=== PATIENT | female | born 1935 | race Caucasian/White ===

== ENCOUNTER 2021-10-19 16:09 | Observation (INO) | payer MEDICARE, SELFPAY ==
[2021-10-19] VITALS (19 sets, daily range): BP systolic 117–148; BP diastolic 48–78; PULSE 63–90; RESP 11–24; TEMP 36.3–37; O2SAT 97–100; BMI 17.8
--- NOTE | 2021-10-19 16:14 | ECG_ITS ---
Measurements Intervals [place] Rate: 69 P: 64 ID: [id number] QRS: 61 QRSD: 70 T: 93 QT: 387 QTc: 417 Interpretive Statements SINUS RHYTHM LOW QRS VOLTAGE- DIFFUSE LEADS ANTEROSEPTAL INFARCT, AGE INDETERMINATE BORDERLINE ST-T WAVE ABNORMALITY- INF/LAT LEADS ABNORMAL ECG Electronically Signed On 10-19-2021 19:36:04 CDT by Alvin Holbrook D.O.
[2021-10-19 16:45] LABS: Basophils Absolute Auto 0.1 K/mm3 (0.0-0.1); Basophils Percent Auto 0.6 % (0.2-1.2); Eosinophils Absolute Auto 0.1 K/mm3 (0-0.3); Eosinophils Percent Auto 0.5 % (0-4.4); Hematocrit 29.9 % (37.0-47.0); Immature Granulocyte Absolute 0.04 K/mm3 (0.00-0.031); Immature Granulocyte Percent A 0.4 % (0-0.5); Lymphocytes Absolute Auto 0.92 K/mm3 (0.9-3.2); Mean Corpuscular HGB Conc 30.1 g/dl (32-36); Mean Corpuscular Hemoglobin 24.7 pg (26-34); Mean Corpuscular Volume 82.1 fl (80-100); Mean Platelet Volume 9.5 fl (7.4-10.4); Monocytes Absolute Auto 0.4 K/mm3 (0.1-0.6); Monocytes Percent Auto 4.2 % (2.6-8.5); Neutrophils Absolute Auto 8.7 K/mm3 (1.3-6.7); Neutrophils Percent Auto 85.3 % (45.5-73.1); Platelet Count Result 267 k/mm3 (150-375); Red Blood Count 3.64 M/mm3 (4.2-5.4); White Blood Count 10.2 K/mm3 (4.5-10.0)
--- NOTE | 2021-10-19 16:51 | ED.SYNCOPE ---
HPI - Syncope General Chief Complaint: Syncope Stated Complaint: syncopal Time Seen by Provider: 10/19/21 16:40 Source: patient Mode of arrival: EMS Limitations: no limitations History of Present Illness HPI narrative: Pt was waking in house from outside and developed CP and SOB and nearly passed out. Pt called for son to help and he got her inside and sat her down and her SOB/CP resolved. Pt has been feeling weak and tired today. Prodromal symptoms: lightheaded, chest pain and shortness of breath Context: during exertion Current symptoms: back to baseline Related Data Allergies Allergy/AdvReac Type Severity Reaction Status Date / Time No Known Allergies Allergy Verified 10/19/21 16:30 Review of Systems Review of Systems: All systems reviewed & are unremarkable except as noted in HPI and below PMFSH Family History Family History Sibling Hypertension Family history of throat cancer Father Family history of diabetes mellitus in first degree relative Patient's father is Family history of heart disease in male family member before age 55 Family history of cardiovascular disease Mother Family history of pancreatic cancer Social History Social History (Updated 08/16/21 @ 12:18 by Maryam Whitfield MA) Years smoked: 40 Smoking status: Former smoker Second hand tobacco smoke exposure: No Alcohol intake: never Exam Const: General: no acute distress Orientation/consciousness: patient oriented x3 Neck: Neck: normal visual inspection Chest: Chest palpation & inspection: normal inspection of the chest Resp: Effort & Inspection: normal respiratory effort Auscultation: clear to auscultation bilaterally Cardio: Rate: regular rate Rhythm: regular rhythm GI: Auscultation: normal bowel sounds Skin: General skin exam: normal color Rashes: no rashes Neuro: General: patient oriented x3, moves all extremities, no meningeal signs and no focal motor deficits Cranial nerves: Yes Nystagmus not present Speech: normal speech Extrem: General: normal to inspection and no clubbing, cyanosis or edema Psych: Appearance: grossly normal Mental Status: mental status grossly normal Thought content: Yes Normal thought content present Course Vital Signs Vital signs: Vital Signs Pulse Rate 75 10/19/21 16:19 Respiratory Rate 14 10/19/21 16:19 Pulse Oximetry 97 10/19/21 16:19 Pulse Rate 67 05/11/22 17:52 Respiratory Rate 20 10/19/21 17:52 Blood Pressure 123/59 L 10/19/21 17:16 Pulse Oximetry 97 10/19/21 17:52 MDM - Syncope Lab Data Result diagrams: 10/19/21 16:37 10/19/21 16:37 Labs: Lab Results 10/19/21 10/19/21 10/19/21 Range/Units 16:37 16:37 16:37 WBC 10.2 H (4.5-10.0) K/mm3 RBC 3.64 L (4.2-5.4) M/mm3 Hgb 9.0 L (12.0-15.0) g/dL Hct 29.9 L (37.0-47.0) % MCV 82.1 (80-100) fl MCH 24.7 L (26-34) pg MCHC 30.1 L (32-36) g/dl RDW 15.0 H (11.5-14.5) % Plt Count 267 (150-375) k/mm3 MPV 9.5 (7.4-10.4) fl Immature Gran % (Auto) 0.4 (0-0.5) % Neut % (Auto) 85.3 H (45.5-73.1) % Lymph % (Auto) 9.0 L (18.3-44.2) % [place] % (Auto) 4.2 (2.6-8.5) % Eos % (Auto) 0.5 (0-4.4) % Baso % (Auto) 0.6 (0.2-1.2) % Lymph # (Auto) 0.92 (0.9-3.2) K/mm3 [place] # (Auto) 0.4 (0.1-0.6) K/mm3 Eos # (Auto) 0.1 (0-0.3) K/mm3 Baso # (Auto) 0.1 (0.0-0.1) K/mm3 Abs Immat Gran (auto) 0.04 H (0.00-0.031) K/mm3 Absolute Neuts (auto) 8.7 H (1.3-6.7) K/mm3 Absolute Nucleated RBC 0.0 (0.0-0.012) K/mm3 Nucleated RBC % 0.0 (0.0-0.2) % Sodium 134 L (137-145) mmol/L Potassium 4.2 (3.4-5.0) mmol/L Chloride 106 (98-107) mmol/L Carbon Dioxide 24 (22-30) mmol/L Anion Gap 4 L (8-16) mmol/L BUN 20 H (7-17) mg/dL Creatinine 0.90 (0.7-1.0) mg/dL Estim Creat Clear [place]
[2021-10-19 16:56] LABS: Alanine Aminotransferase 12 U/L (6-35); Albumin Level 3.9 g/dL (3.5-5.1); Alkaline Phosphatase 61 U/L (38-126); Anion Gap 4 mmol/L (8-16); Aspartate Amino Transferase 25 U/L (14-36); Bilirubin,Total 0.6 mg/dL (0.2-1.3); Blood Urea Nitrogen 20 mg/dL (7-17); Calcium 9.1 mg/dL (8.4-10.2); Carbon Dioxide 24 mmol/L (22-30); Chloride 106 mmol/L (98-107); Estimated CRCL calculation 37 ml/min; Estimated Glomerular Filt Rate 59; Glucose 105 mg/dL (65-110); Potassium 4.2 mmol/L (3.4-5.0); Sodium 134 mmol/L (137-145)
[2021-10-19 17:20] LABS: NT Pro B Type Natriuretic Pept 181 pg/mL (5-100); Troponin I < 0.012 ng/mL (0.000-0.034)
[2021-10-19 17:42] LABS: Troponin I < 0.012 ng/mL (0.000-0.034)
[2021-10-19] MEDS: ASPIRIN 81 MG CHEWABLE TABLET 324 MG PO (18:36)
[2021-10-19 19:29] LABS: SARS-CoV-2 RNA PCR Negative
--- NOTE | 2021-10-19 20:26 | PC.NURSE ---
Patient report tried to call. nurse unable to take report at this time.
[2021-10-19 22:10] LABS: Troponin I < 0.012 ng/mL (0.000-0.034)
--- NOTE | 2021-10-19 22:27 | PM.IMHP ---
H&P: HPI History of Present Illness Date/Time: Patient was placed observation status for expected length of stay less than 23 hours for management, will plan to re-evaluate tomorrow for improvement. 10/19/21 22:27 Chief Complaint: Chest pain Narrative: Ms. Buenrostro is an 86-year-old female who presented to emergency room with complaints of chest discomfort and weakness. Patient states she was walking out to her porch to talk to her son and after speaking with him she was going back in the house and began having midsternal chest discomfort without any radiation. Patient states she did have associated shortness of breath and diaphoresis. Patient states she felt extremely weak in the knees and felt like she could not walk and called for her son to help her. Patient denies any associated nausea or vomiting. Patient stated that she felt like she may ?pass out?, but she never lost consciousness. Patient states that she know she has stents summer in her body, but she is unsure if it is her heart or her legs. 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 After looking through previous medical records it does appear that patient has seen Cardiology in the past, with the last note being 12/21/2015. At that time it was noted the patient does have a history of coronary artery disease status post mid LAD drug-eluting stent that was performed in 2012. Patient also has peripheral arterial disease status post stent placement to her left external iliac artery. Patient states she has been taking all medications at home without any difficulty. Review of Systems Review of Systems: A 12 point review of systems was completed patient all pertinent positive and negative per HPI the remainder are unremarkable. [facility] Past Medical History Medical History (Updated 10/19/21 @ 22:53 by Alysia Perdomo APRN) Coronary artery disease involving habematolel coronary artery of habematolel heart History of PTCA 2 PAD (peripheral artery disease) Surgical History Surgical History (Updated 10/19/21 @ 22:53 by Alysia Perdomo APRN) History of cataract removal with insertion of prosthetic lens History of coronary artery stent placement Family History Family History Sibling Hypertension Family history of throat cancer Father Family history of diabetes mellitus in first degree relative Patient's father is Family history of heart disease in male family member before age 55 Family history of cardiovascular disease Mother Family history of pancreatic cancer Social History Social History (Updated 08/16/21 @ 12:18 by Maryam Whitfield MA) Years smoked: 40 Smoking status: Former smoker Second hand tobacco smoke exposure: No Alcohol intake: never Meds Home Medications and Allergies Home Medications Medication Instructions Recorded Confirmed Type famotidine 20 mg tablet 20 mg PO BID #180 tablet 08/16/21 10/19/21 Rx atorvastatin 40 mg PO HS 10/19/21 10/19/21 History carvedilol 3.125 mg PO Q12H 10/19/21 10/19/21 History clopidogrel 75 mg PO DAILY 10/19/21 10/19/21 History ferrous sulfate 324 mg PO DAILY 10/19/21 10/19/21 History Allergies Allergy/AdvReac Type Severity Reaction Status Date / Time No Known Allergies Allergy Verified 10/19/21 16:30 Vital Signs Vital Signs - 24 hr 10/19/21 16:10 10/19/21 16:19 10/19/21 16:20 Temperature 36.3 C L Pulse Rate 72 75 73 Respiratory Rate 16 14 11 L Blood Pressure 124/78 127/66 Pulse Oximetry 98 97 98 10/19/21 16:29 10/19/21 16:33 10/19/21 16:45 Temperature Pulse Rate 90 68 71 Respiratory Rate 20 17 Blood Pressure Pulse Oximetry 98 98 10/19/21 17:12 10/19/21 17:15 10/19/21 17:16 Temperature Pulse Rate 66 65 64 Respiratory Rate 18 23 H 23 H Blood Pressure 123/59 L Pulse Oximetry 97 98 98 10/19/21 17:52 10/19/21 18:12 10/19/21 18:15 Temperature Pul
[2021-10-19] MEDS: carvediloL 3.125 MG TABLET PO (23:23)
[2021-10-19] MEDS: ATORVASTATIN 40 MG TABLET PO (23:23)
[2021-10-20] VITALS (12 sets, daily range): BP systolic 109–138; BP diastolic 45–54; PULSE 60–75; RESP 16–18; TEMP 36.6–37.2; O2SAT 98–100; BMI 17.8
--- NOTE | 2021-10-20 | ECHO_ITS ---
Patient Info Name: Milly Buenrostro Age: 86 years : 1935 Gender: Female Ht: 64 in Wt: 103 lbs BSA: 1.44 m2 HR: 72 bpm BP: 138 / 54 mmHg Technical Quality: Fair Exam Date: 10/20/2021 9:37 AM Exam Location: [facility] Pul[facility] Patient Status: Outpatient Admit Date: 10/19/2021 Staff Ordering Physician: Alysia Perdomo APRN Transaction Manager: Yanna Mejia RDCS Attending Provider: Dorothy Downing DO Referring Physician: Magi MUELLER Exam Type: CA echo doppler color flow Study Info Indications R07.9 - Chest pain, unspecified Complete two-dimensional, color flow and Doppler transthoracic echocardiogram is performed. Summary 1. Complete two-dimensional, color flow and Doppler transthoracic echocardiogram is performed. 2. Left ventricular chamber dimension is normal. 3. Left ventricular systolic function is normal, estimated at 60-65%. 4. There is mildly increased left ventricular wall thickness. 5. The left ventricular diastolic function is grade I diastolic dysfunction. 6. E/e' 10 is mildly elevated. 7. There is moderate aortic valve sclerosis. 8. No pulmonary hypertension, estimated pulmonary arterial systolic pressure is 30 mmHg. Left Ventricle E/e' 10 is mildly elevated. Left ventricular chamber dimension is normal. Left ventricular systolic function is normal, estimated at 60-65%. There is mildly increased left ventricular wall thickness. The left ventricular diastolic function is grade I diastolic dysfunction. Right Ventricle Right ventricular chamber dimension is normal. Right ventricular systolic function is normal. Left Atria Left atrial chamber dimension is normal. Right Atria Right atrial chamber dimension is normal. Aortic Valve The aortic valve is trileaflet. There is moderate aortic valve sclerosis. There is no aortic valve stenosis. There is no aortic valve regurgitation. Pulmonic Valve There is no pulmonic regurgitation. Mitral Valve There is no mitral valve stenosis. There is no mitral valve regurgitation. Tricuspid Valve There is no tricuspid valve regurgitation. No pulmonary hypertension, estimated pulmonary arterial systolic pressure is 30 mmHg. Pericardium/Pleural There is no pericardial effusion. Inferior Vena Cava Normal inferior vena cava with >50% collapse upon inspiration consistent with normal right atrial pressure, 5 mmHg. Aorta The aortic root size at the sinus of Valsalva is normal. Left Ventricular Outflow Tract Name Value Normal LVOT 2D LVOT Diameter 1.9 cm LVOT Doppler LVOT Peak Gradient 2 mmHg LVOT Mean Gradient 1 mmHg LVOT VTI 23 cm LVOT VTI/AV VTI Ratio 0.9 LVOT Stroke Volume 67 ml LVOT CO 2.5 l/min LVOT CI 1.7 l/min/m2 Pulmonic Valve Name Value Normal
--- NOTE | 2021-10-20 01:38 | ADMGEN ---
This patient, Milly Buenrostro, was admitted to IMU Room 206-02 at 2050 on 10/19/2021. Patient/family oriented to hospital policies and general routines including ID bracelet, bed and alarms, visiting hours, pain management, procedures, bathroom and other care routines, personal items, smoking policy, room service/diet, and visiting hours. Information on how to activate the Rapid Response Team has been discussed. Patient/Family are encouraged to report perceived risks to care and to ask questions if they do not understand what they are told or what they should do.
[2021-10-20 04:44] LABS: Basophils Absolute Auto 0.1 K/mm3 (0.0-0.1); Basophils Percent Auto 0.7 % (0.2-1.2); Eosinophils Absolute Auto 0.1 K/mm3 (0-0.3); Eosinophils Percent Auto 1.3 % (0-4.4); Hemoglobin 8.1 g/dL (12.0-15.0); Immature Granulocyte Absolute 0.03 K/mm3 (0.00-0.031); Immature Granulocyte Percent A 0.4 % (0-0.5); Lymphocytes Absolute Auto 1.48 K/mm3 (0.9-3.2); Lymphocytes Percent Auto 21.4 % (18.3-44.2); Mean Corpuscular HGB Conc 31.2 g/dl (32-36); Mean Corpuscular Hemoglobin 24.6 pg (26-34); Mean Platelet Volume 9.6 fl (7.4-10.4); Monocytes Absolute Auto 0.5 K/mm3 (0.1-0.6); Monocytes Percent Auto 6.7 % (2.6-8.5); Neutrophils Absolute Auto 4.8 K/mm3 (1.3-6.7); Neutrophils Percent Auto 69.5 % (45.5-73.1); Platelet Count Result 250 k/mm3 (150-375); Red Blood Count 3.29 M/mm3 (4.2-5.4); Red Cell Distribution Width 15.1 % (11.5-14.5); White Blood Count 6.9 K/mm3 (4.5-10.0)
[2021-10-20 04:53] LABS: Anion Gap 5 mmol/L (8-16); Blood Urea Nitrogen 18 mg/dL (7-17); Calcium 8.6 mg/dL (8.4-10.2); Carbon Dioxide 22 mmol/L (22-30); Chloride 106 mmol/L (98-107); Estimated CRCL calculation 36 ml/min; Estimated Glomerular Filt Rate > 60; Glucose 84 mg/dL (65-110); Magnesium 2.1 mg/dL (1.6-2.3); Potassium 3.7 mmol/L (3.4-5.0); Sodium 133 mmol/L (137-145)
[2021-10-20] MEDS: FAMOTIDINE 20 MG TABLET PO (08:34)
[2021-10-20] MEDS: carvediloL 3.125 MG TABLET PO (08:34)
[2021-10-20] MEDS: FERROUS SULFATE 324 MG TABLET PO (08:34)
[2021-10-20] MEDS: ENOXAPARIN 40 MG/0.4 ML SYRINGE SUB-Q (08:35)
[2021-10-20] MEDS: CLOPIDOGREL BISULFATE 75 MG TABLET PO (08:35)
[2021-10-20] MEDS: SODIUM CHLORIDE 0.9% IV 500 ML IV CONT (11:52)
[2021-10-20 15:22] LABS: Anion Gap 5 mmol/L (8-16); Blood Urea Nitrogen 18 mg/dL (7-17); Calcium 8.5 mg/dL (8.4-10.2); Carbon Dioxide 23 mmol/L (22-30); Chloride 110 mmol/L (98-107); Estimated CRCL calculation 29 ml/min; Estimated Glomerular Filt Rate 59; Glucose 109 mg/dL (65-110); Sodium 138 mmol/L (137-145)
--- NOTE | 2021-10-20 18:54 | PM.DS ---
DS: Admitting Diagnosis Discharge Date 10/20/21 Admitting Diagnosis Chest pain and generalized weakness DS: Discharge Diagnosis Discharge Diagnosis (1) Chest pain: Qualifiers: Chest pain type: chest pain due to myocardial ischemia Ischemic chest pain type: unspecified angina pectoris type Qualified Code(s): I25.9 - Chronic ischemic heart disease, unspecified Code(s): R07.9 - Chest pain, unspecified Status: Acute Assessment and Plan: Telemetry and troponins all within normal limits, follow-up outpatient with Cardiology for stress test. Echo did show grade 1 diastolic dysfunction, no systolic dysfunction. (2) Benign essential hypertension: Code(s): I10 - Essential (primary) hypertension Status: Acute Assessment and Plan: Will resume patient's home medications once verified home medication list and adjust medications accordingly for optimal blood pressure control. (3) Mixed hyperlipidemia: Code(s): E78.2 - Mixed hyperlipidemia Status: Acute Assessment and Plan: Will resume patient's home atorvastatin. Patient's most recent lipid panel was performed in July of this year and Lipitor very well controlled at that time. (4) Hyponatremia: Code(s): E87.1 - Hypo-osmolality and hyponatremia Status: Acute Assessment and Plan: Likely secondary to dehydration, resolved with simple bolus DS: Summary Hospital Course Reason for hospitalization: Chest pain Hospital Course: 86-year-old female with past medical history significant for coronary artery disease is presenting with chest discomfort and weakness. She did have some associated shortness of breath and diaphoresis and felt weak. She felt like she might pass out, but never lost consciousness. She is admitted for observation, troponins were negative x3 and telemetry was benign. ECG showed no acute changes. Echo was also ordered and showed grade 1 diastolic dysfunction with an EF of 60-65%. She was discharged in good condition with outpatient follow-up to Cardiology to arrange a stress test. Status at Discharge Functional status at discharge: independent ambulation Overall status at discharge: patient is back to baseline Time Spent with Patient Time attestation: Total time spent providing and/or coordinating discharge services: Greater than 30 minutes Time spent: Greater than 30 minutes Exam Const: General: no acute distress HENMT: Mouth: Yes moist mucous membranes Eyes: General: appearance normal, both eyes and all related structures Neck: Neck: no JVD Resp: Auscultation: clear to auscultation bilaterally Cardio: Rate: regular rate Rhythm: regular rhythm GI: Inspection: non-distended GI Palp: Yes Soft to palpation and No Tenderness to palpation present (GI) Skin: General skin exam: no rashes or lesions noted DS: Data Data Completed and Pending Labs on day of discharge: Labs from last 24 hours 10/20/21 10/20/21 10/20/21 15:05 04:26 04:26 WBC 6.9 RBC 3.29 L Hgb 8.1 L Hct 26.0 L MCV 79.0 L MCH 24.6 L MCHC 31.2 L RDW 15.1 H Plt Count 250 MPV 9.6 Immature Gran % (Auto) 0.4 Neut % (Auto) 69.5 Lymph % (Auto) 21.4 [place] % (Auto) 6.7 Eos % (Auto) 1.3 Baso % (Auto) 0.7 Lymph # (Auto) 1.48 [place] # (Auto) 0.5 Eos # (Auto) 0.1 Baso # (Auto) 0.1 Abs Immat Gran (auto) 0.03 Absolute Neuts (auto) 4.8 Absolute Nucleated RBC 0.0 Nucleated RBC % 0.0 Sodium 138 133 L Potassium 4.0 3.7 Chloride 110 H 106 Carbon Dioxide 23 22 Anion Gap 5 L 5 L BUN 18 H 18 H Creatinine 0.90 0.70 Estim Creat Clear Calc 29 36 Estimated GFR 59 > 60 Glucose 109 84 Calcium 8.5 8.6 Magnesium 2.1 Troponin I SARS-CoV-2 RNA (RT-PCR) 10/19/21 10/19/21 21:43 18:39 WBC RBC Hgb Hct MCV MCH MCHC RDW Plt Count MPV Immature Gran % (Auto) Neut % (Auto) L
== END 2021-10-20 17:30 | disposition home or self-care (01) ==
LOC: ANHED 18:07 → ANHIMU 19:57
PROVIDERS: Emergency Medicine; Nurse Practitioner Adult Health; Admitting Provider Family Medicine; Emergency Provider Emergency Medicine; PCP Internal Medicine; Visit Provider Student in an Organized Health Care Education/Training Program
DX: R07.9 Chest pain, unspecified (principal); I25.10 Atherosclerotic heart disease of native coronary artery without angina pectoris; I10 Essential (primary) hypertension; I73.9 Peripheral vascular disease, unspecified; E78.2 Mixed hyperlipidemia; E87.1 Hypo-osmolality and hyponatremia; Z95.820 Peripheral vascular angioplasty status with implants and grafts; Z95.5 Presence of coronary angioplasty implant and graft; Z20.822 Contact with and (suspected) exposure to COVID-19
CPT/HCPCS: 36415; 80048; 80053; 83735; 83880; 84484; 85025; 93005; 93306; 96372; 97161; 99285; A9270; C9803; G0378; J1650; J7040; U0003; U0005

== ENCOUNTER 2022-05-17 11:00 | Outpatient (RCR) | payer MEDICARE, SELFPAY ==
--- NOTE | 2022-05-17 13:18 | PCPTNOTE ---
Patient did not show up for scheduled appointment this date.
== END 2022-07-31 08:33 | disposition home or self-care (01) ==
LOC: ANHPT 11:00
PROVIDERS: PCP Internal Medicine; Visit Provider Internal Medicine
DX: R26.9 Unspecified abnormalities of gait and mobility (principal)
CPT/HCPCS: 99199

== ENCOUNTER 2022-06-28 11:50 | Outpatient (CLI) | payer MEDICARE, SELFPAY ==
--- NOTE | ~2022-06-28 | XR_ITS ---
XR chest 2V DATE: 06/28/2022 12:14 INDICATION: Abnormal weight loss over the past 6 months TECHNIQUE: PA and lateral views COMPARISON: 12/09/2012 PA and lateral chest FINDINGS: There is minimal focal infiltrate or atelectasis in the anterior segment of the right upper lobe laterally abutting the minor fissure. Minimal bilateral lower lung infiltrate or atelectasis is suggested. The lungs appear moderately hyperinflated. Normal heart size. Aortic and great vessel calcification. Coronary artery stent. No hilar or mediasti nal enlargement. No pleural effusion or pulmonary vascular congestion or pneumothorax. Osteopenia. Degenerative spurring of the thoracic and lumbar spine. IMPRESSION: Minimal focal infiltrate in the lateral anterior segment of the right upper lobe abutting the minor fissure Suggestion of minimal infiltrate or atelectasis in the lower lung zones Moderate hyperinflation Coronary artery stent Aortic and great vessel calcification Osteopenia Degenerative spurring of the thoracic and lumbar spine. Reviewed, dictated and finalized at location B. [facility] [employer] IMPRESSION: Minimal focal infiltrate in the lateral anterior segment of the rig ht upper lobe abutting the minor fissure Suggestion of minimal infiltrate or atelectasis in the lower lung zones Moderate hyperinflation Coronary artery stent Aortic and great vessel calcification Osteopenia Degenerative spurring of the thoracic and lumbar spine.
== END 2022-06-28 11:51 | disposition home or self-care (01) ==
PROVIDERS: PCP Internal Medicine; Visit Provider Nurse Practitioner
DX: R63.4 Abnormal weight loss (principal); M85.88 Other specified disorders of bone density and structure, other site; R91.8 Other nonspecific abnormal finding of lung field; I70.0 Atherosclerosis of aorta
CPT/HCPCS: 71046

== ENCOUNTER 2023-03-16 10:26 | Outpatient (CLI) | payer MEDICARE, SELFPAY ==
--- NOTE | ~2023-03-16 | US_ITS ---
EXAMINATION: US soft tissue head and neck DATE: 03/16/2023 11:31 INDICATION: Localized swelling, mass and lump at the left neck. TECHNIQUE: Multiple grayscale and Doppler ultrasound images of the region of concern on the left jaw near the ear were obtained. COMPARISON: None FINDINGS: At the region of concern is a 3.7 x 2.8 x 2.3 cm heterogeneously hypoechoic mass with lobular margins and some internal vascular flow on color Doppler. There is situated along the caudal margin of what appears to be the echogenic parotid gland. There are multiple enlarged and similarly heterogeneous an d hypoechoic left jugular chain lymph nodes. For reference 3 of the largest measure 2.2 x 1.5 x 1.0 c m, 2.0 x 1.0 x 0.8 cm and 2.4 x 1.1 x 1.8 cm. No evident pathologically enlarged lymphadenopathy in t he contralateral right jugular chain. Incidentally noted are multiple bilateral thyroid nodules, the largest a 1.6 cm taller than wide solid hypoechoic nodule (TI-RADS 5, highly suspicious , FNA if >=1. 0 cm, annual followup is >0.5 cm). IMPRESSION: 1. 3.7 x 2.8 x 2.3 cm heterogeneous mass at the region of concern located along the caudal margin of the parotid. Unclear whether this represents flow within or outside of the parotid but which is along with multiple enlarged left jugular chain lymph nodes are concerning for malignancy and/or metastati c disease. Recommend ultrasound-guided biopsy. 2. Incompletely visualized multinodular goiter with at least one nodule meeting criteria for ultrasou nd-guided biopsy. Recommend thyroid ultrasound for more comprehensive evaluation and to determine if there are any additional more concerning nodules for which biopsy would be recommended. Reviewed, dictated and finalized at location A. IMPRESSION: 1. 3.7 x 2.8 x 2.3 cm heterogeneous mass at the region of concern located along the caudal margin of the parotid. Unclear whether this represents flow within or outside of the parotid but which is along with multiple enlarged left jugula r chain lymph nodes are concerning for malignancy and/or metastatic disease. Re commend ultrasound-guided biopsy. 2. Incompletely visualized multinodular goiter with at least one nodule meeting criteria for ultrasound-guided biopsy. Recommend thyroid ultrasound for more c omprehensive evaluation and to determine if there are any additional more uday rning nodules for which biopsy would be recommended.
== END 2023-03-16 10:27 | disposition home or self-care (01) ==
PROVIDERS: PCP Family Medicine; Visit Provider Family Medicine
DX: R22.1 Localized swelling, mass and lump, neck (principal); E04.2 Nontoxic multinodular goiter
CPT/HCPCS: 76536

== ENCOUNTER → 2023-03-23 10:43 | Outpatient (CLI) | payer MEDICARE, SELFPAY ==
--- NOTE | ~2023-03-23 | US_ITS ---
EXAMINATION: US thyroid DATE: 03/23/2023 11:08 INDICATION: Nontoxic single thyroid nodule. TECHNIQUE: Multiple ultrasound images of the thyroid were obtained. COMPARISON: Ultrasound 03/16/2023 FINDINGS: The right thyroid lobe measures 5.6 x 1.8 x 1.5 cm. The left thyroid lobe measures 4.4 x 2.0 x 2.1 c m. There are least 10 nodules in the thyroid. In the left thyroid lobe, there is a 1.8 cm solid, hyp oechoic, wider than tall nodule with ill-defined margin without echogenic foci (TI-RADS TR4). In the left thyroid lobe, there is a 1.3 cm solid, hypoechoic, wider than tall nodule with ill-defined leroy n without echogenic foci (TR4). In the left thyroid lobe, there is a 1.6 cm solid, hypoechoic, wider than tall nodule with smooth margin without echogenic foci (TR4). IMPRESSION: 1. Multinodular goiter. The patient is scheduled for a cervical lymph node biopsy next week. If that biopsy is negative or positive for cancer other than thyroid cancer, consider ultrasound-guided fine- needle aspiration of 2 thyroid nodules if clinically indicated given the patient's age and comorbidit ies. Reviewed, dictated and finalized at location A. IMPRESSION: 1. Multinodular goiter. The patient is scheduled for a cervical lymph node biop sy next week. If that biopsy is negative or positive for cancer other than thyr oid cancer, consider ultrasound-guided fine-needle aspiration of 2 thyroid nodu les if clinically indicated given the patient's age and comorbidities.
== END ==
PROVIDERS: PCP Family Medicine; Visit Provider Family Medicine
DX: E04.2 Nontoxic multinodular goiter (principal)
CPT/HCPCS: 76536

== ENCOUNTER 2023-03-26 09:06 | Outpatient (CLI) | payer MEDICARE, SELFPAY ==
--- NOTE | ~2023-03-26 | US_ITS ---
EXAMINATION: US biopsy lymph node DATE: 03/26/2023 10:34 INDICATION: Left neck mass and cervical lymphadenopathy TECHNIQUE: The procedure including the risks and benefits was discussed with the patient. Risks discu ssed included bleeding and infection. The patient understood the risks and agreed to proceed. The sk in overlying the left neck was prepped and draped in usual sterile fashion. Anesthetic was administe red with 1% lidocaine subcutaneously. An 18 gauge core biopsy needle was advanced under continuous u ltrasound observation to the enlarged and heterogeneous appearing left jugular chain lymph nodes. 8 core biopsy specimens were obtained, 3 placed in formalin and 5 in RPMI media. The needle was remove d and the entry site was cleaned and dressed. Post procedure ultrasound demonstrated no hemorrhage. FINDINGS: Ultrasound images demonstrate biopsy needle advanced into a 1.9 x 1.2 cm left jugular chain lymph node. IMPRESSION: 1. Successful Ultrasound-guided biopsy of an enlarged 1.9 x 1.2 similar left jugular chain lymph node . Reviewed, dictated and finalized at location A. IMPRESSION: 1. Successful Ultrasound-guided biopsy of an enlarged 1.9 x 1.2 similar left ju gular chain lymph node.
== END 2023-03-26 09:07 | disposition home or self-care (01) ==
PROVIDERS: PCP Family Medicine; Visit Provider Family Medicine
DX: R22.1 Localized swelling, mass and lump, neck (principal); R68.89 Other general symptoms and signs
CPT/HCPCS: 38505; 76942; 88305; 88342

== ENCOUNTER 2023-04-12 13:09 | Outpatient (CLI) | payer MEDICARE, SELFPAY ==
--- NOTE | ~2023-04-12 | PE_ITS ---
EXAMINATION: PET skull to mid thigh DATE: 04/12/2023 15:20 INDICATION: Malignant neoplasm of head, face, neck. TECHNIQUE: Blood glucose level was 74 mg/dL. 10.1 mCi of 18-fluorodeoxyglucose (18-FDG) was administe red i.v. Low dose computed tomography (CT) images were acquired from the base of the brain to the pro ximal thighs for attenuation correction and anatomic localization. Automated exposure control was emp loyed. Dose-length product (DLP) was 509 mGy-cm. Positron emission tomography (PET) images were acqui red in the same distribution. COMPARISON: None FINDINGS: Head/neck: There is left high and middle internal jugular chain lymphadenopathy. For example, a 3.3 x 3.4 cm hector mass in left high internal jugular chain demonstrates maximum SUV of 12. There is a 12 mm nodule in left thyroid lobe, likely not clinically significant. Chest: There is mild scarring at the lung apices. No pleural effusion. There is calcified atheroscler osis of the aorta and many of the other arteries. The heart size is normal. There are coronary artery calcifications. No pericardial effusion. Abdomen/pelvis/proximal thighs: The liver, gallbladder, spleen, adrenal glands, and right kidney are normal. Calcifications in the hilum of left kidney are likely vascular. There is diverticulosis of th e colon without evidence of diverticulitis. There are changes of right hemicolectomy. There are no pa thologically enlarged lymph nodes. There is no free intraperitoneal fluid. There is no osseous malign lili. IMPRESSION: 1. Left internal jugular chain lymphadenopathy with increased activity, consistent with metastatic sq uamous cell carcinoma. Reviewed, dictated and finalized at location E. IMPRESSION: 1. Left internal jugular chain lymphadenopathy with increased activity, consist ent with metastatic squamous cell carcinoma.
[2023-04-12 13:52] LABS: Glucose Point of Care 74 mg/dl (65-105)
== END 2023-04-12 13:10 | disposition home or self-care (01) ==
PROVIDERS: PCP Family Medicine; Referring Provider Nurse Practitioner; Visit Provider Family Medicine
DX: C76.0 Malignant neoplasm of head, face and neck (principal); R59.0 Localized enlarged lymph nodes
CPT/HCPCS: 78815; A9552

== ENCOUNTER 2023-05-01 13:11 | Outpatient (CLI) | payer MEDICARE, SELFPAY ==
--- NOTE | ~2023-05-01 | US_ITS ---
EXAMINATION: US FNA additional, US FNA w image guidance DATE: 05/01/2023 14:25 INDICATION: Left sided thyroid nodules TECHNIQUE: A time-out was performed to verify the patient's name, date of , and procedure to be performed . The procedure and its benefits and risks were discussed with the patient. Risks specifically discus sed included bleeding and infection. The patient understood the risks and agreed to proceed. The left neck was prepped and draped in the usual sterile manner. 4 mL 1% lidocaine was used for local anest hesia. Attention was first turned to the larger nodules in the mid left thyroid lobe. 6 passes were m jane with a 25G needle into the lesion. Appropriate needle location was documented with continuous so nographic guidance. Attention was then turned to the smaller more inferior left thyroid nodule. An ad ditional 6 passes were made with a 20 5G needle into the lesion again with continuous sonographic roseann dance. A sterile bandage was applied. There were no immediate complications. FINDINGS: Grayscale ultrasound images demonstrate biopsy needles advanced into first a 2.4 x 1.0 x 1.4 cm TI RA DS 4 nodule in the mid left thyroid. Subsequently images demonstrate additional biopsy needles advanc ed into the more caudal 1.5 x 0.7 x 1.5 cm TI RADS 4 nodule at the inferior left thyroid. IMPRESSION: 1. Successful ultrasound-guided fine needle aspiration of a 2.4 cm TI RADS 4 nodule in the mid left thyroid. 2. Successful ultrasound-guided fine-needle aspiration of a 1.5 similar TI RADS 4 nodule in the infer ior left thyroid.. Reviewed, dictated and finalized at location A. ING HOME MANAGER IMPRESSION: 1. Successful ultrasound-guided fine needle aspiration of a 2.4 cm TI RADS 4 n odule in the mid left thyroid. 2. Successful ultrasound-guided fine-needle aspiration of a 1.5 similar TI RADS 4 nodule in the inferior left thyroid..
== END 2023-05-01 13:12 | disposition home or self-care (01) ==
PROVIDERS: PCP Family Medicine; Visit Provider Internal Medicine Hematology & Oncology
DX: E04.1 Nontoxic single thyroid nodule (principal)
CPT/HCPCS: 10005; 10006; 88173; 88305

== ENCOUNTER 2023-06-01 07:26 | Outpatient (CLI) | payer MEDICARE, SELFPAY ==
--- NOTE | ~2023-06-01 | NM_ITS ---
EXAMINATION: NM chano stress w perfusion DATE: 06/01/2023 10:44 INDICATION: Shortness of breath TECHNIQUE: Rest images were obtained following intravenous administration of 10.2 mCi Tc99m tetrofosm in (Myoview). The patient was infused intravenously with Lexiscan (Regadenoson). Then, 32.2 mCi Tc99m tetrofosmin (Myoview) was administered intravenously, and stress images were obtained. Data was flash nstructed into short axis and horizontal and vertical long axis SPECT images. Gated SPECT images were also obtained. COMPARISON: None. FINDINGS: There is no definite reversible or fixed perfusion abnormality to suggest ischemia or infar ction. There is normal left ventricular chamber size, wall motion and ejection fraction. Left ventr icular ejection fraction measures 70%. IMPRESSION: 1. Normal myocardial perfusion at rest and during stress. 2. Left ventricular ejection fraction measuring 70%. Reviewed, dictated and finalized at location A. MENT WORKER
--- NOTE | 2023-06-01 08:17 | EST_ITS ---
Patient Info Name: Milly Buenrostro Age: 88 years : 1935 Gender: Female Ht: 64 in Wt: 106 lbs BSA: 1.47 m2 HR: 82 bpm BP: 132 / 86 mmHg Heart Rhythm: Sinus Rhythm Exam Date: 06/01/2023 8:34 AM Exam Location: Echo Lab Patient Status: Outpatient Admit Date: 06/01/2023 Staff Ordering Physician: Alvin Holbrook DO Attending Provider: Alvin Holbrook DO Exercise Technologist: Donna Cao CT Exercise Physician: Alvin Holbrook DO Exam Type: CA stress chano w NM Study Info Indications Z01.810 - Encounter for preprocedural cardiovascular examination A regadenoson stress test was performed. Summary 1. 1. Abnormal lexiscan stress test for ischemic ST changes by ECG criteria. 2. 2. Stable hemodynamics throughout the test. 3. 3. Nuclear scan to follow and will be reported separately. Please correlate with it. 4. 4. Patient informed of the above results. Protocol: Lexiscan Stress ECG Details Stage: REST Duration (min): 1 min : 8 sec HR (bpm): 80 SBP (mmHg): 132 DBP (mmHg): 86 Stage: REST Duration (min): 13 min : 7 sec HR (bpm): 80 SBP (mmHg): 132 DBP (mmHg): 86 Stage: STAGE 1 Duration (min): 0 min : 59 sec HR (bpm): 91 SBP (mmHg): 132 DBP (mmHg): 86 Stage: RECOVERY Duration (min): 1 min : 0 sec HR (bpm): 97 SBP (mmHg): 163 DBP (mmHg): 74 Stage: RECOVERY Duration (min): 2 min : 0 sec HR (bpm): 96 SBP (mmHg): 163 DBP (mmHg): 74 Stage: RECOVERY Duration (min): 3 min : 0 sec HR (bpm): 95 SBP (mmHg): 179 DBP (mmHg): 82 Stage: RECOVERY Duration (min): 4 min : 0 sec HR (bpm): 97 SBP (mmHg): 179 DBP (mmHg): 82 Stage: RECOVERY Duration (min): 5 min : 0 sec HR (bpm): 96 SBP (mmHg): 189 DBP (mmHg): 83 Stage: RECOVERY Duration (min): 5 min : 24 sec HR (bpm): 94 SBP (mmHg): 189 DBP (mmHg): 83 Rest HR: 80 bpm Peak HR: 101 bpm Rest Sys BP: 132 mmHg Peak Sys BP: 189 mmHg Max Pred HR: 131 bpm % Max Pred HR: 77 % Target HR: 111 bpm Max RPP: 19,089 bpm*mmHg Termination Reason: Completed protocol Cardiac Symptoms: Shortness of breath, Nausea, Aminophylline 100 mg IV given for persistent symptoms Total Time: 1 min : 0 sec Rest Best BP: 86 mmHg Peak Best BP: 83 mmHg Total Dose: 0.4 mg Resting ECG Sinus rhythm, anteroseptal infarct, high lateral infarct, age indeterminate, borderline ST abnormality in inferior leads. Stress ECG 1-[address] depression in inferior leads. Arrhythmias None. Report Signatures
== END 2023-06-01 07:27 | disposition home or self-care (01) ==
PROVIDERS: PCP Nurse Practitioner; Visit Provider Internal Medicine Cardiovascular Disease
DX: R06.02 Shortness of breath (principal)
CPT/HCPCS: 78452; 93017; A9502; J0280; J2785

== ENCOUNTER 2023-08-14 13:47 | Emergency (ER) | payer MEDICARE, SELFPAY ==
--- NOTE | ~2023-08-14 | XR_ITS ---
EXAMINATION: XR chest 1V portable Exam Date/Time: 08/14/2023 19:21 TRANSFER TABLE OPERATOR HELPER HISTORY: Weakness Comparison: 06/28/2022. RESULT: Lines, tubes, and devices: Coronary artery stent. Lungs and pleura: Senescent changes. Granulomatous calcifications. Cardiomediastinal silhouette: Stable. Other: No acute osseous or upper abdominal finding. IMPRESSION: No acute cardiopulmonary process. Reviewed, dictated and finalized at location K. SFER TABLE OPERATOR HELPER
[2023-08-14 14:13] VITALS: BP 134/67; PULSE 114; RESP 18; TEMP 36.6; O2SAT 99
[2023-08-14] MEDS: SODIUM CHLORIDE 0.9% IV 1,000 ML 500 ML IV CONT (19:57)
[2023-08-14 20:05] VITALS: BP 125/67; PULSE 90; RESP 19; O2SAT 100
[2023-08-14 20:05] LABS: Basophils Percent Auto 0.3 % (0.2-1.2); Eosinophils Percent Auto 0.3 % (0-4.4); Immature Granulocyte Absolute 0.04 K/mm3 (0.00-0.031); Immature Granulocyte Percent A 0.5 % (0-0.5); Lymphocytes Absolute Auto 0.53 K/mm3 (0.9-3.2); Lymphocytes Percent Auto 6.6 % (18.3-44.2); Mean Corpuscular HGB Conc 31.7 g/dl (32-36); Mean Corpuscular Hemoglobin 28.4 pg (26-34); Mean Corpuscular Volume 89.7 fl (80-100); Mean Platelet Volume 9.4 fl (7.4-10.4); Monocytes Absolute Auto 0.6 K/mm3 (0.1-0.6); Neutrophils Absolute Auto 6.7 K/mm3 (1.3-6.7); Neutrophils Percent Auto 84.3 % (45.5-73.1); Platelet Count Result 298 k/mm3 (150-375); Red Blood Count 4.57 M/mm3 (4.2-5.4); Red Cell Distribution Width 11.9 % (11.5-14.5)
[2023-08-14 20:14] LABS: Alanine Aminotransferase 15 U/L (6-35); Albumin Level 3.5 g/dL (3.5-5.1); Alkaline Phosphatase 70 U/L (38-126); Anion Gap 7 mmol/L (8-16); Aspartate Amino Transferase 28 U/L (14-36); Bilirubin,Total 0.8 mg/dL (0.2-1.3); Blood Urea Nitrogen 22 mg/dL (7-17); Calcium 9.8 mg/dL (8.4-10.2); Carbon Dioxide 26 mmol/L (22-30); Chloride 102 mmol/L (98-107); Estimated CRCL calculation 41 ml/min; Estimated Glomerular Filt Rate > 60; Glucose 112 mg/dL (65-110); Magnesium 2.2 mg/dL (1.6-2.3); Potassium 4.1 mmol/L (3.4-5.0); Sodium 135 mmol/L (137-145)
--- NOTE | 2023-08-14 20:38 | ED.WEAKNESS ---
HPI - Weakness General Chief complaint: Weakness Stated complaint: sent from oncology, dehydration? Time Seen by Provider: 08/14/23 19:03 History of Present Illness HPI Narrative: Patient is an 88-year-old female who presents to the emergency department this evening after being sent in by her radiation oncologist for IV hydration. Patient states that she was recently diagnosed with head and neck cancer and is currently undergoing radiation treatments. Patient has had 11 treatments out of 33 and patient admits that she has not had an appetite and as much as she is trying to eat and drink she is not in taking enough food. Patient states that her radiation oncologists has talked to her about possibly getting a G-tube. Patient admits that she feels generally weak but is currently denying any focal weakness, numbness and/or tingling, chest pain, shortness of breath, headaches, dizziness, lightheadedness, or any blurry visions. Patient is resting comfortably, alert and oriented x4 and has no additional complaints at this time. There are no modifying, alleviating, or precipitating factors at this time. Related Data Home Medications Medication Instructions Recorded Confirmed aspirin 81 mg tablet,delayed 81 mg PO DAILY 12/13/22 08/14/23 release Allergies Allergy/AdvReac Type Severity Reaction Status Date / Time No Known Allergies Allergy Verified 08/14/23 13:05 Review of Systems Review of Systems: All systems are reviewed and are negative unless stated otherwise in the HPI. [facility] [place] Past Medical History Medical History Coronary artery disease involving [place] coronary artery of [place] heart History of PTCA 2 PAD (peripheral artery disease) Surgical History Surgical History History of cataract removal with insertion of prosthetic lens History of coronary artery stent placement Family History Family History Sibling Hypertension Family history of throat cancer Father Family history of diabetes mellitus in first degree relative Patient's father is Family history of heart disease in male family member before age 55 Family history of cardiovascular disease Mother Family history of pancreatic cancer Social History Social History Smoking packs per day: 1 Smoking cigarettes per day: 20.0 Years smoked: 65 Smoking pack-years: 65.00 Smoking status: Current every day smoker Tobacco type: cigarettes Second hand tobacco smoke exposure: No Additional smoking assessment comments: smoking about 1/2 pack now Alcohol intake: never Substance use: never Spiritual care concerns: No Exam Narrative: General: Alert, awake, afebrile, in no acute distress. HEENT: PERRL, no rhinorrhea, no post nasal drip, oropharynx clear. Neck: Trachea midline, no JVD, no lymphadenopathy. Cardiovascular: Regular rate and rhythm, no murmurs, rubs or gallops, no peripheral edema. Respiratory: Clear to auscultation bilaterally, no tachypnea, no wheezing, no rhonchi, no rubs, no respiratory distress. Abdomen: Soft, nontender, nondistended, no rebound, no guarding, no peritoneal signs. Musculoskeletal: No joint swelling or deformity, normal muscle tone. Skin: No rashes or petechia, no signs of infection. Psychiatric: Alert and oriented, normal behavior and judgment for situation. Neurological: Alert and oriented to person, place, and time. Follows all commands. No focal deficits, speech is clear and fluent. Course Vital Signs Vital signs: Vital Signs Temperature 97.8 F 08/14/23 14:13 Pulse Rate 114 H 08/14/23 14:13 Respiratory Rate 18 08/14/23 14:13 Blood Pressure 134/67 08/14/23 14:13 Pulse Oximetry 99 08/14/23 14:13 Oxygen Delivery Room Air 08/14/23 14:13
[2023-08-14] MEDS: SODIUM CHLORIDE 0.9% IV 1,000 ML 150 ML IV CONT (20:55)
--- NOTE | 2023-08-14 21:07 | PC.NURSE ---
Dr. Mayorga states second liter of IV fluids to be infused within one hour
[2023-08-14 21:42] VITALS: BP 152/79; PULSE 87; RESP 18; O2SAT 100
[2023-08-14 23:08] VITALS: BP 153/65; PULSE 76; RESP 17; O2SAT 97
== END 2023-08-14 23:10 | disposition home or self-care (01) ==
PROVIDERS: Emergency Provider Emergency Medicine; PCP Nurse Practitioner
DX: R53.1 Weakness (principal); E86.0 Dehydration; R63.4 Abnormal weight loss; Z68.1 Body mass index [BMI] 19.9 or less, adult; C76.0 Malignant neoplasm of head, face and neck; I25.10 Atherosclerotic heart disease of native coronary artery without angina pectoris; Z98.49 Cataract extraction status, unspecified eye; Z95.5 Presence of coronary angioplasty implant and graft; Z96.1 Presence of intraocular lens; I73.9 Peripheral vascular disease, unspecified; F17.210 Nicotine dependence, cigarettes, uncomplicated
CPT/HCPCS: 36415; 71045; 77386; 80053; 83735; 85025; 96360; 96361; 99283; J7030

== ENCOUNTER 2023-08-16 13:09 | Observation (INO) | payer MEDICARE, SELFPAY ==
[2023-08-16 13:28] VITALS: BP 106/54; PULSE 109; RESP 18; TEMP 36.5; O2SAT 100
--- NOTE | 2023-08-16 15:06 | PC.NURSE ---
50 mg hydrocodone PO taken last at 1430 per pt family
--- NOTE | 2023-08-16 17:56 | ED.GENADULT ---
HPI - General Adult General Chief complaint: Unspecified <Suzette Ring PA-C - Last Filed: 08/16/23 20:56> Stated complaint: feeding tube placement <Suzette Ring PA-C - Last Filed: 08/16/23 20:56> Time Seen by Provider: 08/16/23 17:05 <Suzette Ring PA-C - Last Filed: 08/16/23 20:56> History of Present Illness HPI narrative: 88-year-old female who was recently diagnosed with head and neck cancer reports for evaluation for a G-tube placement. Patient had a left radical peritonectomy and neck dissection on 06/22/[address] Jennings at [facility] which revealed intraoperative gross involvement of the jugular vein, carotid, cranial nerves XI. 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 Patient states she is currently undergoing radiation treatments with Dr. Sebastien Rosen. States her oncologist has been urging her to have a PEG tube placed given recent weight loss. She states she recently weight 120 lb and is down to 90 lb. She reports decreased appetite because food does not taste good and she has difficulty swallowing secondary to cancer. She currently lives at home with her 2 sons to help care for her, however states she is mostly independent. Patient has no current complaints. She denies chest pain, shortness of breath, abdominal pain, nausea vomiting, diarrhea, dysuria or hematuria, cough or congestion. Primary care and oncology notes reviewed by myself. <Suzette Ring PA-C - Last Filed: 08/16/23 20:56> Related Data Home medications: Home Medications Medication Instructions Recorded Confirmed atorvastatin 40 mg tablet 40 mg PO DAILY 08/17/23 08/17/23 carvedilol 3.125 mg tablet 3.125 mg PO DAILY 08/17/23 08/17/23 oxycodone 5 mg tablet 5 mg PO Q4H PRN Pain, Moderate 08/17/23 08/17/23 <CLARY Thompson Last Filed: 08/16/23 20:56> Allergies/adverse reactions: Allergies Allergy/AdvReac Type Severity Reaction Status Date / Time No Known Allergies Allergy Verified 08/14/23 13:05 <Suzette Ring PA-C - Last Filed: 08/16/23 20:56> Review of Systems Review of Systems: CONSTITUTIONAL: Denies fever, chills, or sweats. EYES: Denies visual changes, redness, or discharge. ENT: Denies rhinorrhea, congestion, sore throat, or otalgia. CARDIOVASCULAR: Denies chest pain, palpitations, or edema. RESPIRATORY: Denies cough or dyspnea. GASTROINTESTINAL: Denies abdominal pain, nausea, vomiting, or diarrhea. GENITOURINARY: Denies dysuria or hematuria. SKIN: Denies rash or itching. MUSCULOSKELETAL: Denies back pain, joint pain, or myalgia. NEUROLOGIC: Denies headache, numbness, or weakness. PSYCHIATRIC: Denies anxiety or depression. <Suzette Ring PA-C - Last Filed: 08/16/23 20:56> [facility] Past Medical History Medical History: Medical History Coronary artery disease involving [place] coronary artery of [place] heart History of PTCA 2 PAD (peripheral artery disease) <Suzette Ring PA-C - Last Filed: 08/16/23 20:56> Surgical History Surgical History: Surgical History History of cataract removal with insertion of prosthetic lens History of coronary artery stent placement <Suzette Ring PA-C - Last Filed: 08/16/23 20:56> Family History Family History: Family History Sibling Hypertension Family history of throat cancer Father Family history of diabetes mellitus in first degree relative Patient's father is Family history of heart disease in male family member before age 55 Family history of cardiovascular disease Mother Family history of pancreatic cancer
--- NOTE | 2023-08-16 18:03 | ECG_ITS ---
Measurements Intervals [place] Rate: 82 P: 69 MT: 142 QRS: 76 QRSD: 85 T: 86 QT: 382 QTc: 447 Interpretive Statements SINUS RHYTHM LOW QRS VOLTAGE IN LIMB LEADS ANTEROSEPTAL INFARCT, AGE INDETERMINATE BORDERLINE ST-T WAVE ABNORMALITY- HIGH LATERAL LEADS BASELINE ARTIFACT- I, III, AVR, AVL, V3, V6 ABNORMAL ECG COMPARED TO ECG 10/19/2021 16:23:38 NO SIGNIFICANT CHANGES Electronically Signed On 08-16-2023 18:31:56 ANALYST PROGRAMMER by Alvin Holbrook D.O.
[2023-08-16 18:14] LABS: Basophils Percent Auto 0.3 % (0.2-1.2); Eosinophils Percent Auto 0.3 % (0-4.4); Hematocrit 38.3 % (37.0-47.0); Hemoglobin 12.7 g/dL (12.0-15.0); Immature Granulocyte Absolute 0.03 K/mm3 (0.00-0.031); Immature Granulocyte Percent A 0.4 % (0-0.5); Lymphocytes Absolute Auto 0.52 K/mm3 (0.9-3.2); Lymphocytes Percent Auto 6.9 % (18.3-44.2); Mean Corpuscular HGB Conc 33.2 g/dl (32-36); Mean Corpuscular Hemoglobin 29.1 pg (26-34); Mean Corpuscular Volume 87.8 fl (80-100); Mean Platelet Volume 9.2 fl (7.4-10.4); Monocytes Absolute Auto 0.5 K/mm3 (0.1-0.6); Monocytes Percent Auto 6.2 % (2.6-8.5); Neutrophils Absolute Auto 6.5 K/mm3 (1.3-6.7); Neutrophils Percent Auto 85.9 % (45.5-73.1); Platelet Count Result 252 k/mm3 (150-375); Red Blood Count 4.36 M/mm3 (4.2-5.4); Red Cell Distribution Width 11.9 % (11.5-14.5); White Blood Count 7.5 K/mm3 (4.5-10.0)
[2023-08-16] MEDS: SODIUM CHLORIDE 0.9% IV 1,000 ML 999 ML IV CONT (18:15)
[2023-08-16 18:34] LABS: Alanine Aminotransferase 15 U/L (6-35); Albumin Level 3.4 g/dL (3.5-5.1); Alkaline Phosphatase 68 U/L (38-126); Anion Gap 7 mmol/L (8-16); Aspartate Amino Transferase 25 U/L (14-36); Bilirubin,Total 0.8 mg/dL (0.2-1.3); Blood Urea Nitrogen 12 mg/dL (7-17); Calcium 9.5 mg/dL (8.4-10.2); Carbon Dioxide 25 mmol/L (22-30); Chloride 100 mmol/L (98-107); Estimated Glomerular Filt Rate > 60; Glucose 80 mg/dL (65-110); Potassium 3.8 mmol/L (3.4-5.0); Sodium 132 mmol/L (137-145)
[2023-08-16 20:09] LABS: Bacteria Urine None Seen /hpf; Non Pathogenic Casts 0-2; RBC Urine 0-2 /hpf (0-2); Squamous Epithelial Cell Urine Occasional /hpf (Few); WBC Urine 0-5 /hpf
--- NOTE | 2023-08-16 20:28 | PM.IMHP ---
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 Presents to emergency room for possible PEG tube placement. Review of Systems Review of Systems: Dysphagia, weight loss, undergoing radiation for head and neck squamous cell carcinoma. Constitutional: Constitutional: Denies chills, Denies fever(s), Reports poor appetite, Reports weakness and Reports weight loss Eyes: Eyes: Denies change in vision ENT: Reports dysphagia, Denies vertigo, Denies dizziness and Denies odynophagia Cardiovascular: Cardiovascular: Denies chest pain Respiratory: Respiratory: Denies cough Gastrointestinal: Gastrointestinal: Denies abdominal pain, Denies dyspepsia, Denies heartburn, Denies nausea and Denies vomiting Genitourinary: Genitourinary: Denies dysuria Musculoskeletal: Musculoskeletal: Denies myalgias Integumentary/Breasts: Skin/Breast: Denies rash Neurologic: Denies focal weakness and Denies Sensory deficit (Neuro) Psychiatric: Psychiatric: Reports no additional psychiatric complaints and Reports as per HPI Endocrine: Endocrine: Denies cold intolerance, Denies flushing, Denies heat intolerance, Denies polyphagia, Denies polydipsia, Denies polyuria and Denies palpitations Hematologic/Lymphatic: Hematologic/Lymphatic: Reports no additional hematologic/lymphatic complaints and Reports as per HPI Allergic/Immunologic: Allergic/Immunologic: Reports no additional allergic/immunologic complaints and Reports as per HPI PMFSH Past Medical History Medical History Coronary artery disease involving [place] coronary artery of [place] heart History of PTCA 2 PAD (peripheral artery disease) Surgical History Surgical History History of cataract removal with insertion of prosthetic lens History of coronary artery stent placement Family History Family History Sibling Hypertension Family history of throat cancer Father Family history of diabetes mellitus in first degree relative Patient's father is Family history of heart disease in male family member before age 55 Family history of cardiovascular disease Mother Family history of pancreatic cancer Social History Social History Smoking packs per day: 1 Smoking cigarettes per day: 20.0 Years smoked: 65 Smoking pack-years: 65.00 Smoking status: Current every day smoker Second hand tobacco smoke exposure: No Additional smoking assessment comments: smoking about 1/2 pack now Alcohol intake: never Substance use: never Do You Feel Safe in your Home?: Yes Lack of Transportation: No Lack of Food: Never True Current Housing: I Have Housing Concerned About Future Housing: No Difficulty Paying Gas/Electric Bills: No Difficulty Paying for Meds: No Currently Unemployed: No Education: High School Diploma/GED Difficulty w/ Childcare or Family Care: No Spiritual care concerns: No Meds Home Medications and Allergies Home Medications Medication Instructions Recorded Confirmed Type albuterol sulfate 90 mcg/actuation 2 inh inhalation Q4H PRN shortness 07/24/22 08/17/23 Rx aerosol inhaler of breath or wheezing #8.5 grams famotidine 20 mg tablet (Pepcid) 20 mg PO BID #180 tabs 04/11/23 08/17/23 Rx omeprazole 20 mg capsule,delayed 20 mg PO DAILY #30 caps 07/12/23 08/17/23 Rx release atorvastatin 40 mg tablet 40 mg PO DAILY 08/17/23 08/17/23 History carvedilol 3.
[2023-08-16 20:32] LABS: Influenza A QL RT-PCR Negative (Negative); Influenza B QL RT-PCR Negative (Negative); RSV RNA, RT-PCR Negative (Negative); SARS-CoV-2 RNA PCR Negative (Negative)
[2023-08-16 20:33] LABS: Appearance Urine Clear (Clear); Color Urine Yellow (Yellow); pH Urine 6.5 (5.0-9.0)
[2023-08-16 20:34] LABS: Bilirubin Urine 1+ (Negative); Blood Urine Negative (Negative); Glucose Urine UA Negative (Negative); Ketones Urine 3+ mg/dL (Negative); Leukocyte Esterase Ur Negative LEU/UL (Negative); Nitrate Urine Negative (Negative); Protein Urine Trace mg/dL (Negative)
[2023-08-16 20:35] LABS: Add Urine Microscopic? YES
[2023-08-16 20:45] VITALS: BP 148/73; PULSE 86; RESP 18; TEMP 36.3; O2SAT 100
[2023-08-16] MEDS: SODIUM CHLORIDE 0.9% IV 1,000 ML 100 ML IV CONT (21:25)
--- NOTE | 2023-08-16 21:50 | PC.NURSE ---
Pt daughter, Ruma, was called to update on patient admission
[2023-08-17] VITALS (14 sets, daily range): BP systolic 112–197; BP diastolic 54–100; PULSE 78–115; RESP 16–24; TEMP 36.1–36.7; O2SAT 98–100; BMI 16.1
[2023-08-17] MEDS: hydrALAZINE HCL 20 MG/ML VIAL 10 MG IV PUSH (05:32)
[2023-08-17] MEDS: DEXTROSE 5%/LACTATED RINGERS 1,000 ML 100 ML IV CONT ×2 (09:03→20:24)
[2023-08-17 09:19] LABS: Hematocrit 37.8 % (37.0-47.0); Hemoglobin 12.4 g/dL (12.0-15.0); Mean Corpuscular HGB Conc 32.8 g/dl (32-36); Mean Corpuscular Hemoglobin 29.1 pg (26-34); Mean Corpuscular Volume 88.7 fl (80-100); Mean Platelet Volume 9.3 fl (7.4-10.4); Platelet Count Result 244 k/mm3 (150-375); Red Blood Count 4.26 M/mm3 (4.2-5.4); Red Cell Distribution Width 11.9 % (11.5-14.5); White Blood Count 7.7 K/mm3 (4.5-10.0)
[2023-08-17 09:37] LABS: Alanine Aminotransferase 13 U/L (6-35); Albumin Level 3.3 g/dL (3.5-5.1); Alkaline Phosphatase 67 U/L (38-126); Anion Gap 7 mmol/L (8-16); Aspartate Amino Transferase 22 U/L (14-36); Bilirubin,Total 0.7 mg/dL (0.2-1.3); Blood Urea Nitrogen 6 mg/dL (7-17); Calcium 8.9 mg/dL (8.4-10.2); Carbon Dioxide 22 mmol/L (22-30); Chloride 104 mmol/L (98-107); Estimated Glomerular Filt Rate > 60; Glucose 72 mg/dL (65-110); Potassium 3.4 mmol/L (3.4-5.0); Sodium 133 mmol/L (137-145)
--- NOTE | 2023-08-17 12:02 | PCDIET ---
Physician consult for tube feedings. Recommendations: Jevity 1.5 at 45 ml/hr. Recommend starting tube feedings at 20 ml/hr advancing by 10 ml q 4 hours to goal rate of 45 ml/hr. Tube feeding at goal rate providing 1485 kcals/63 gms protein/752 ml water. Flush 75 ml q 4 hours. Bolus feedings: 240 ml 4 x per day. Providing 1440 kcals/61 gms protein/730 ml water. Flush 75 ml with feedings.
--- NOTE | 2023-08-17 12:09 | PC.NURSE ---
Pt. down to GI lab via wheelchair. Tierney Chinchilla, daughter, notified of patient being taken down at this time.
--- NOTE | 2023-08-17 12:30 | WPDANESEPPF ---
Anes - Initial Pre Proc Eval Procedure: Operation Date: 08/17/23 16:00 Proposed Procedures p Percutaneous Endoscopic Gastrostomy - Remigio Hoffman MD Date/Time: 08/17/23 12:30 Surgeon: Edis Salas MD Pre Op Diagnosis: Failure To Thrive Patient Data Age: 88 Gender: F Height: 1.63 m Weight: 42.6 kg Last Vital Signs Temp 98 F 08/17/23 06:05 Pulse 106 H 08/17/23 06:05 Resp 20 08/17/23 06:05 BP 160/72 H 08/17/23 06:05 Pulse Ox 99 08/17/23 06:05 O2 Del Method Room Air 08/17/23 08:00 Allergies Allergy/AdvReac Type Severity Reaction Status Date / Time No Known Allergies Allergy Verified 08/14/23 13:05 Home Medications Medication Instructions Recorded Confirmed Type albuterol sulfate 90 mcg/actuation 2 inh inhalation Q4H PRN shortness 07/24/22 08/17/23 Rx aerosol inhaler of breath or wheezing #8.5 grams famotidine 20 mg tablet (Pepcid) 20 mg PO BID #180 tabs 04/11/23 08/17/23 Rx omeprazole 20 mg capsule,delayed 20 mg PO DAILY #30 caps 07/12/23 08/17/23 Rx release atorvastatin 40 mg tablet 40 mg PO DAILY 08/17/23 08/17/23 History carvedilol 3.125 mg tablet 3.125 mg PO DAILY 08/17/23 08/17/23 History oxycodone 5 mg tablet 5 mg PO Q4H PRN Pain, Moderate 08/17/23 08/17/23 History Laboratory Tests 08/16/23 08/16/23 08/16/23 18:04 19:23 19:39 WBC 7.5 K/mm3 (4.5-10.0) RBC 4.36 M/mm3 (4.2-5.4) Hgb 12.7 g/dL (12.0-15.0) Hct 38.3 % (37.0-47.0) MCV 87.8 fl (80-100) MCH 29.1 pg (26-34) MCHC 33.2 g/dl (32-36) RDW 11.9 % (11.5-14.5) Plt Count 252 k/mm3 (150-375) MPV 9.2 fl (7.4-10.4) Immature Gran % (Auto) 0.4 % (0-0.5) Neut % (Auto) 85.9 H % (45.5-73.1) Lymph % (Auto) 6.9 L % (18.3-44.2) [place] % (Auto) 6.2 % (2.6-8.5) Eos % (Auto) 0.3 % (0-4.4) Baso % (Auto) 0.3 % (0.2-1.2) Lymph # (Auto) 0.52 L K/mm3 (0.9-3.2) [place] # (Auto) 0.5 K/mm3 (0.1-0.6) Eos # (Auto) 0.0 K/mm3 (0-0.3) Baso # (Auto) 0.0 K/mm3 (0.0-0.1) Abs Immat Gran (auto) 0.03 K/mm3 (0.00-0.031) Absolute Neuts (auto) 6.5 K/mm3 (1.3-6.7) Absolute Nucleated RBC 0.0 K/mm3 (0.0-0.012) Nucleated RBC % 0.0 % (0.0-0.2) Sodium 132 L mmol/L (137-145) Potassium 3.8 mmol/L (3.4-5.0) Chloride 100 mmol/L (98-107) Carbon Dioxide 25 mmol/L (22-30) Anion Gap 7 L mmol/L (8-16) BUN 12 D mg/dL (7-17) Creatinine 0.50 L mg/dL (0.7-1.0) Estim Creat Clear Calc Not Reportable Estimated GFR > 60 (59 - ) Glucose 80 mg/dL (65-110) Calcium 9.5 mg/dL (8.4-10.2) Total Bilirubin 0.8 mg/dL (0.2-1.3) AST 25 U/L (14-36) ALT 15 U/L (6-35) Alkaline Phosphatase 68 U/L (38-126) Total Protein 7.0 g/dL (6.3-8.2) Albumin 3.4 L g/dL (3.5-5.1) Urine Color Yellow (Yellow) Urine Appearance Clear (Clear) Urine pH 6.5 (5.0-9.0) Ur Specific [place] 1.020 (1.001-1.035) Urine Protein Trace mg/dL (Negative) Urine Glucose (UA) Negative mg/dL (Negative) Urine Ketones 3+ H mg/dL (Negative) Ur Blood (Man) Negative (Negative) Urine Nitrate Negative (Negative) Urine Bilirubin 1+ H (Negative) Urine Urobilinogen 1.0 mg/dL (<2.0) Leukocyte Esterase Rfl Negative [place]/UL (Negative) Urine RBC 0-2 /hpf (0-2) Urine WBC 0-5 /hpf Ur Squamous Epith Cells Occasional /hpf (Few) Urine Bacteria None seen /hpf Urine Casts 0-2 Influenza A (RT-PCR) Negative (Negative) Influenza B
--- NOTE | 2023-08-17 12:35 | WPDGICN ---
Assessment and Plan Assessment and plan (1) Dysphagia: Code(s): R13.10 - Dysphagia, unspecified Status: Acute Assessment and Plan: lack of appetite, difficulty eating- currently undergoing XRT after neck cancer, she needs PEG placement and she is agreeable will give iv abx (2) Squamous cell carcinoma of head and neck: Code(s): C76.0 - Malignant neoplasm of head, face and neck Status: Acute Assessment and Plan: by oncology and radiation oncologist (3) Malnutrition: Qualifiers: Malnutrition type: protein-calorie malnutrition Protein-calorie malnutrition severity: unspecified severity Qualified Code(s): E46 - Unspecified protein-calorie malnutrition Code(s): E46 - Unspecified protein-calorie malnutrition Status: Acute Assessment and Plan: dysphagia and cancer will place g tube for feeding she still will be able to drink/eat as pleased (4) Failure to thrive: Qualifiers: Failure to thrive age range: in adult Qualified Code(s): R62.7 - Adult failure to thrive Status: Acute (5) Metastatic cancer: Code(s): C79.9 - Secondary malignant neoplasm of unspecified site Status: Acute GI Consult Note Consult date/time: 08/17/23 12:35 Reason for consult: dysphagia, malnutrition, neck cancer HPI: Milly Buenrostro is a 88 year old female with history of neck mass then underwent dissection on 06/22/[address] Jennings at [facility] which revealed intraoperative gross involvement of the jugular vein, carotid, cranial nerves XI.? Final pathology revealed SCC, high-grade, poorly differentiated, unifocal, 10.8 cm, involving the entire parotid gland with tumor extending to an increase in the carotid artery, external jugular vein and greater auricular nerve.?She is currently undergoing radiation treatments, unfortunately lately with poor oral intake and not able to keep food down sometimes, also dry mouth. She lost about 30 lb, also difficulty swallowing secondary to cancer. Finally she came to hospital for evaluation of PEG placement. Review of Systems Constitutional: Constitutional: Reports poor appetite, Reports weakness and Reports weight loss Eyes: Eyes: Denies blurry vision ENT: Reports Normal hearing present Cardiovascular: Cardiovascular: Denies chest pain Respiratory: Respiratory: Denies dyspnea Gastrointestinal: Gastrointestinal: Denies abdominal pain Genitourinary: Genitourinary: Denies dysuria Musculoskeletal: Musculoskeletal: Denies neck pain Integumentary/Breasts: Skin/Breast: Denies rash Neurologic: Denies confusion Psychiatric: Psychiatric: Denies behavioral changes [facility] Past Medical History Medical History Coronary artery 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 History of PTCA 2 PAD (peripheral artery disease) Surgical History Surgical History History of cataract removal with insertion of prosthetic lens History of coronary artery stent placement Family History Family History Sibling Hypertension Family history of throat cancer Father Family history of diabetes mellitus in first degree relative Patient's father is Family history of heart disease in male family member before age 55 Family history of cardiovascular disease Mother Family history of pancreatic cancer Social History Social History Smoking packs per day: 1 Smoking cigarettes per day: 20.0 Years smoked: 65 Smoking pack-years: 65.00 Smoking status: Current every day smoker Second hand tobacco smoke exposure: No Additional smoking assessment comments: smoking about 1/2 pack now Alcohol intake: never Substance use: never Do You Feel Safe in your
[2023-08-17] MEDS: LACTATED RINGERS 1,000 ML 150 ML IV CONT (12:36)
[2023-08-17] MEDS: ceFAZolin 1 GM/NS 50 ML 1 GM/50 ML BAG IVPB (12:48)
--- NOTE | 2023-08-17 13:52 | PC.NURSE ---
Pt. back from GI lab at 1345. Tube feeding cannot start until 6 hours after placement. Tube feeding due to be started at 20:00 on 08/17/23. Patient in 03/20 abdominal pain upon arrival to room, Viji Johansen APRN notified to get orders for IVP pain medication for patient. Tube feeding orders placed based on mutuel cashier recommendations.
[2023-08-17] MEDS: MORPHINE SULFATE (*CRX) 2 MG/ML INJ 1 MG IV PUSH (14:06)
[2023-08-17] MEDS: hydrALAZINE HCL 20 MG/ML VIAL IV PUSH (14:06)
--- NOTE | 2023-08-17 14:10 | PCDIET ---
Tube feeding recommendation: Jevity 1.5 at 45 ml/hr. Recommend starting tube feedings at 20 ml/hr advancing by 10 ml q 4 hours to goal rate of 45 ml/hr. Tube feeding at goal rate providing 1485 kcals/63 gms protein/752 ml water. Flush 75 ml q 4 hours. *Bolus feedings: 240 ml 4 x per day. Providing 1440 kcals/61 gms protein/730 ml water. Flush 75 ml with feedings.
--- NOTE | 2023-08-17 14:33 | PCOTNOTE ---
Attempted to see pt. for occupational therapy evaluation. Per nursing, pt. requested not to participate today as she has just returned from surgery and is in pain. Pt agreeable to participate tomorrow. Following.
--- NOTE | 2023-08-17 14:35 | PCPTNOTE ---
Attempted PT evaluation. PER OT: Per nursing, pt. requested not to participate today as she has just returned from surgery and is in pain. Pt agreeable to participate tomorrow. Following.
--- NOTE | 2023-08-17 15:10 | PM.IMPN ---
Progress Note: A&P Assessment and Plan (1) Dysphagia: Qualifiers: Dysphagia type: unspecified Qualified Code(s): R13.10 - Dysphagia, unspecified Code(s): R13.10 - Dysphagia, unspecified Status: Acute Assessment and Plan: Here for PEG tube placement speech eval (2) Failure to thrive: Qualifiers: Failure to thrive age range: in adult Qualified Code(s): R62.7 - Adult failure to thrive Status: Acute Assessment and Plan: PT OT (3) Squamous cell carcinoma of head and neck: Code(s): C76.0 - Malignant neoplasm of head, face and neck Status: Acute Assessment and Plan: Status post surgery undergoing radiation treatment Plan Dysphagia secondary to carcinoma of the head and neck May eat and drink as tolerated GI consulted Peg tube to be placed Consult dietitian Will start tube feedings post 6 hours monitor residuals will need education for discharge he had Monitor electrolytes PPI Carcinoma of head and neck Post surgical intervention undergoing radiation treatment Lack appetite Oncologist recommended placement of PEG tube due to recent weight loss and inability to swallow without pain Generalized weakness secondary to cancer treatments and loss of appetite PT OT pending PEG tube placed Will need home health with assistance on tube feedings and continue PT OT Code status: Full code per patient DVT prophylaxis: SCD's Stress ulcer prophylaxis: Pepcid PT/OT notes: PT/OT pending Disposition: Patient continues admission following placement of peek 2 will initiate tube feedings post 6 hours and monitor for residuals. PT OT pending for recommendations and consult to care coordination will need assistance with tube feedings and continue PT/OT. Patient lives at home with son currently and agrees to home Time Spent With Patient Time with patient: 15 - 25 minutes Subjective Date/time seen: 08/17/23 15:10 Interval history: (Medical Record) Chief Complaint: dysphagia Narrative: This is an 88-year-old female with past medical history significant for head and neck squamous cell carcinoma status post surgery patient undergoing radiation, patient presents to the emergency room due to generalized weakness, poor per orally intake, dysphagia, patient can only take liquids.? Presents to emergency room for possible PEG tube placement. 08/16: Patient is a pleasant older female who states she has not had an appetitate and has difficulting swallowing due to her cancer treatment. Patient has lost over 20 pounds recently and her oncologist recommended placement of peg tube to increase he nutritional intake. Patient agrees at this time to continue with placement of peg tube. Review of Systems Review of Systems: All systems reviewed & are unremarkable except as noted in HPI and below Exam Narrative: Physical Exam: GENERAL: Alert and oriented x 3. No acute distress. Cachectic EYES: EOMI. No scleral icterus. PERRLA. HEENT: Moist mucous membranes. No cervical lymphadenopathy. LUNGS: Clear to auscultation bilaterally. No accessory muscle use. CARDIOVASCULAR: Regular rate and rhythm. No murmur. No JVD. S1-S2 ABDOMEN: Soft, mild tenderness and non-distended. No palpable masses. EXTREMITIES: No edema. Non-tender SKIN: No rashes or lesions. Skin warm, dry. NEUROLOGIC: No focal neurological deficits. CN II-XII grossly intact PSYCHIATRIC: Appropriate mood and affect. Good judgement and insight. No visual or auditory hallucinations. No suicidal or homicidal ideation. Const: General: cooperative, comfortable, no acute distress, well developed, alert, awake, ill appearing and underweight Nutritional Appearance: underweight Orientation/consciousness: patient oriented x3 HENMT: Head: normal to inspection, normocephalic and atraumatic Ears: hearing grossly normal bilaterally Face/Nose/Sinus: normal facial exam Face and s
[2023-08-17 18:10] LABS: Glucose Point of Care 172 mg/dl (65-105)
[2023-08-17] MEDS: carvediloL 3.125 MG TABLET FEED TUBE (20:27)
[2023-08-18] VITALS (10 sets, daily range): BP systolic 94–138; BP diastolic 47–71; PULSE 86–921; RESP 6–20; TEMP 36.2–37.6; O2SAT 97–100
[2023-08-18 00:49] LABS: Glucose Point of Care 186 mg/dl (65-105)
[2023-08-18 06:17] LABS: Hematocrit 37.1 % (37.0-47.0); Hemoglobin 12.1 g/dL (12.0-15.0); Mean Corpuscular HGB Conc 32.6 g/dl (32-36); Mean Corpuscular Hemoglobin 28.7 pg (26-34); Mean Corpuscular Volume 87.9 fl (80-100); Mean Platelet Volume 9.6 fl (7.4-10.4); Platelet Count Result 260 k/mm3 (150-375); Red Blood Count 4.22 M/mm3 (4.2-5.4); White Blood Count 12.4 K/mm3 (4.5-10.0)
[2023-08-18] MEDS: DEXTROSE 5%/LACTATED RINGERS 1,000 ML 100 ML IV CONT (06:27)
[2023-08-18 06:33] LABS: Alanine Aminotransferase 11 U/L (6-35); Albumin Level 2.8 g/dL (3.5-5.1); Alkaline Phosphatase 60 U/L (38-126); Anion Gap 3 mmol/L (8-16); Aspartate Amino Transferase 18 U/L (14-36); Bilirubin,Total 0.6 mg/dL (0.2-1.3); Blood Urea Nitrogen 6 mg/dL (7-17); Calcium 8.9 mg/dL (8.4-10.2); Carbon Dioxide 27 mmol/L (22-30); Chloride 100 mmol/L (98-107); Estimated CRCL calculation 52 ml/min; Estimated Glomerular Filt Rate > 60; Glucose 199 mg/dL (65-110); Magnesium 1.8 mg/dL (1.6-2.3); Potassium 3.1 mmol/L (3.4-5.0); Sodium 130 mmol/L (137-145)
[2023-08-18 07:00] LABS: Glucose Point of Care 208 mg/dl (65-105)
[2023-08-18] MEDS: POTASSIUM CHLORIDE 20 MEQ PACKET (FOR LIQUID) 40 MEQ FEED TUBE (07:56)
[2023-08-18] MEDS: carvediloL 3.125 MG TABLET FEED TUBE ×2 (07:57→21:30)
[2023-08-18] MEDS: ATORVASTATIN 40 MG TABLET FEED TUBE (07:57)
[2023-08-18] MEDS: FAMOTIDINE 20 MG TABLET FEED TUBE ×2 (07:57→16:41)
[2023-08-18] MEDS: ACETAMINOPHEN 325 MG TABLET 650 MG FEED TUBE (07:57)
[2023-08-18 07:59] LABS: Phosphorus 2.2 mg/dL (2.5-4.5)
--- NOTE | 2023-08-18 10:55 | WPDANESPN ---
Anes - Prog Note Post-Op Date/Time: 08/18/23 10:55 Cardiovascular status: normal Respiratory status: normal Airway patency: baseline Mental status: baseline Post-Op hydration status: normal Vital Signs: Last Vital Signs Temp 36.5 C 08/18/23 08:57 Pulse 98 08/18/23 08:00 Resp 16 08/18/23 08:00 BP 120/59 L 08/18/23 08:00 Pulse Ox 98 08/18/23 08:38 O2 Del Method Room Air 08/18/23 08:38 Pain Score (VAS): 0/10. resting quietly I/O: Intake & Output 08/17/23 08/18/23 08/18/23 23:59 07:59 15:59 Intake Total 1000 1450 Output Total 450 Balance 1000 1000 Laboratory Tests 08/18/23 05:31 08/18/23 05:31 08/17/23 08/18/23 08/18/23 18:08 00:43 05:28 WBC RBC Hgb Hct MCV MCH MCHC RDW Plt Count MPV Sodium Potassium Chloride Carbon Dioxide Anion Gap BUN Creatinine Estim Creat Clear Calc Estimated GFR Glucose POC Capillary Glucose 172 H 186 H Calcium Phosphorus 2.2 L Magnesium Total Bilirubin AST ALT Alkaline Phosphatase Total Protein Albumin 08/18/23 08/18/23 05:31 06:53 WBC 12.4 H RBC 4.22 Hgb 12.1 Hct 37.1 MCV 87.9 MCH 28.7 MCHC 32.6 RDW 12.0 Plt Count 260 MPV 9.6 Sodium 130 L Potassium 3.1 L Chloride 100 Carbon Dioxide 27 Anion Gap 3 L BUN 6 L Creatinine 0.40 L Estim Creat Clear Calc 52 Estimated GFR > 60 Glucose 199 H POC Capillary Glucose 208 H Calcium 8.9 Phosphorus Magnesium 1.8 Total Bilirubin 0.6 AST 18 ALT 11 Alkaline Phosphatase 60 Total Protein 6.0 L Albumin 2.8 L Post-procedural complaints: none Patient Feedback: Patient satisfied with anesthetic care.
[2023-08-18 11:32] LABS: Glucose Point of Care 159 mg/dl (65-105)
--- NOTE | 2023-08-18 11:47 | P.PNIM_ITS ---
Progress Note: A&P Assessment and Plan (1) Dysphagia: Qualifiers: Dysphagia type: unspecified Qualified Code(s): R13.10 - Dysphagia, unspecified Code(s): R13.10 - Dysphagia, unspecified Status: Acute (2) Failure to thrive: Qualifiers: Failure to thrive age range: in adult Qualified Code(s): R62.7 - Adult failure to thrive Status: Acute (3) Squamous cell carcinoma of head and neck: Code(s): C76.0 - Malignant neoplasm of head, face and neck Status: Acute Plan Dysphagia secondary to carcinoma of the head and neck * May eat and drink as tolerated * GI consulted * Peg tube to be placed * Consult dietitian * Will start tube feedings post 6 hours * monitor residuals * will need education for discharge he had * Monitor electrolytes * PPI 08/17: * Tube feedings tolerating * CC setting up for discharge to home with HH * mild temp and WBC bump likely reactive * F/U labs in the am * monitor glucose/mag/phos/K+ replenish as needed hypokalemia. * 3.1 * 40meq * monitor and replenish as needed Hyperglycemia * secondary to tube feedings * accucheck ACHS * SS insulin Carcinoma of head and neck * Post surgical intervention undergoing radiation treatment * Lack appetite * Oncologist recommended placement of PEG tube due to recent weight loss and inability to swallow without pain Generalized weakness secondary to cancer treatments and loss of appetite * PT OT pending * PEG tube placed * Will need home health with assistance on tube feedings and continue PT OT Code status: Full code per patient DVT prophylaxis: SCD's Stress ulcer prophylaxis: Pepcid PT/OT notes: PT/OT pending Disposition: Peg tube placed, tube feedings started discharge plan is home with CC consulted for assistance. Time Spent With Patient Time with patient: 15 - 25 minutes Subjective Date/time seen: 08/18/23 11:47 Interval history: (Medical Record) Chief Complaint: dysphagia Narrative: This is an 88-year-old female with past medical history significant for head and neck squamous cell carcinoma status post surgery patient undergoing radiation, patient presents to the emergency room due to generalized weakness, poor per orally intake, dysphagia, patient can only take liquids.? Presents to emergency room for possible PEG tube placement. 08/16: Patient is a pleasant older female who states she has not had an appetitate and has difficulting swallowing due to her cancer treatment. Patient has lost over 20 pounds recently and her oncologist recommended placement of peg tube to increase he nutritional intake. Patient agrees at this time to continue with placement of peg tube. 08/17: Patient comfortable and tolerating tube feedings at this time. Mild temp 99.7 this am and WBC 12 likely reactive to tube placement follow-up labs in the am will continue with tube feedings. Plan is for patient to return home with HH. Review of Systems Review of Systems: Dysphagia, weight loss, undergoing radiation for head and neck squamous cell carcinoma. All systems reviewed & are unremarkable except as noted in HPI and below Exam Narrative: Physical Exam: * GENERAL: Alert and oriented x 3. No acute distress. Cachectic * EYES: EOMI. No scleral icterus. PERRLA. * HEENT: Moist mucous membranes. No cervical lymphadenopathy. * LUNGS: Clear to auscultation bilaterally. No acces
--- NOTE | 2023-08-18 11:47 | PM.IMPN ---
Progress Note: A&P Assessment and Plan (1) Dysphagia: Qualifiers: Dysphagia type: unspecified Qualified Code(s): R13.10 - Dysphagia, unspecified Code(s): R13.10 - Dysphagia, unspecified Status: Acute (2) Failure to thrive: Qualifiers: Failure to thrive age range: in adult Qualified Code(s): R62.7 - Adult failure to thrive Status: Acute (3) Squamous cell carcinoma of head and neck: Code(s): C76.0 - Malignant neoplasm of head, face and neck Status: Acute Plan Dysphagia secondary to carcinoma of the head and neck May eat and drink as tolerated GI consulted Peg tube to be placed Consult dietitian Will start tube feedings post 6 hours monitor residuals will need education for discharge he had Monitor electrolytes PPI 08/17: Tube feedings tolerating CC setting up for discharge to home with HH mild temp and WBC bump likely reactive F/U labs in the am monitor glucose/mag/phos/K+ replenish as needed hypokalemia. 3.1 40meq monitor and replenish as needed Hyperglycemia secondary to tube feedings accucheck ACHS SS insulin Carcinoma of head and neck Post surgical intervention undergoing radiation treatment Lack appetite Oncologist recommended placement of PEG tube due to recent weight loss and inability to swallow without pain Generalized weakness secondary to cancer treatments and loss of appetite PT OT pending PEG tube placed Will need home health with assistance on tube feedings and continue PT OT Code status: Full code per patient DVT prophylaxis: SCD's Stress ulcer prophylaxis: Pepcid PT/OT notes: PT/OT pending Disposition: Peg tube placed, tube feedings started discharge plan is home with CC consulted for assistance. Time Spent With Patient Time with patient: 15 - 25 minutes Subjective Date/time seen: 08/18/23 11:47 Interval history: (Medical Record) Chief Complaint: dysphagia Narrative: This is an 88-year-old female with past medical history significant for head and neck squamous cell carcinoma status post surgery patient undergoing radiation, patient presents to the emergency room due to generalized weakness, poor per orally intake, dysphagia, patient can only take liquids.? Presents to emergency room for possible PEG tube placement. 08/16: Patient is a pleasant older female who states she has not had an appetitate and has difficulting swallowing due to her cancer treatment. Patient has lost over 20 pounds recently and her oncologist recommended placement of peg tube to increase he nutritional intake. Patient agrees at this time to continue with placement of peg tube. 08/17: Patient comfortable and tolerating tube feedings at this time. Mild temp 99.7 this am and WBC 12 likely reactive to tube placement follow-up labs in the am will continue with tube feedings. Plan is for patient to return home with HH. Review of Systems Review of Systems: Dysphagia, weight loss, undergoing radiation for head and neck squamous cell carcinoma. All systems reviewed & are unremarkable except as noted in HPI and below Exam Narrative: Physical Exam: GENERAL: Alert and oriented x 3. No acute distress. Cachectic EYES: EOMI. No scleral icterus. PERRLA. HEENT: Moist mucous membranes. No cervical lymphadenopathy. LUNGS: Clear to auscultation bilaterally. No accessory muscle use. CARDIOVASCULAR: Regular rate and rhythm. No murmur. No JVD. S1-S2 ABDOMEN: Soft, mild tenderness and non-distended. No palpable masses. EXTREMITIES: No edema. Non-tender SKIN: No rashes or lesions. Skin warm, dry. NEUROLOGIC: No focal neurological deficits. CN II-XII grossly intact PSYCHIATRIC: Appropriate mood and affect. Good judgement and insight. No visual or auditory hallucinations. No suicidal or homicidal ideation. Objective Data Vital Signs Vital Signs: Vital Signs - 24 hr 08/17/23 12:30
--- NOTE | 2023-08-18 14:04 | WPDGIPROGNO ---
Progress Note: A&P Assessment and Plan (1) Dysphagia: Qualifiers: Dysphagia type: unspecified Qualified Code(s): R13.10 - Dysphagia, unspecified Code(s): R13.10 - Dysphagia, unspecified Status: Acute Assessment and Plan: g-tube placement, tolerating tube feeding (2) Malnutrition: Qualifiers: Malnutrition type: protein-calorie malnutrition Protein-calorie malnutrition severity: unspecified severity Qualified Code(s): E46 - Unspecified protein-calorie malnutrition Code(s): E46 - Unspecified protein-calorie malnutrition Status: Acute (3) Failure to thrive: Qualifiers: Failure to thrive age range: in adult Qualified Code(s): R62.7 - Adult failure to thrive Status: Acute (4) Squamous cell carcinoma of head and neck: Code(s): C76.0 - Malignant neoplasm of head, face and neck Status: Acute Assessment and Plan: will follow with oncology for more radiation (5) Debility: Code(s): R53.81 - Other malaise Status: Acute (6) Dehydration: Code(s): E86.0 - Dehydration Status: Inactive Assessment and Plan: treated, now she is getting nutrition support Subjective Date/time seen: 08/18/23 14:04 Interval history: tolerating tube feeding, now at 45 ml/h overall better, also drinking some water and mouth is less dry still generalized weakness Review of Systems Review of Systems: All systems reviewed & are unremarkable except as noted in HPI and below Exam Const: General: comfortable and no acute distress HENMT: Face/Nose/Sinus: Normal nares present Mouth: Yes dry mucous membranes Eyes: Sclera: sclerae normal Neck: Other: surgical scar left neck Resp: Auscultation: clear to auscultation bilaterally Cardio: Rate: regular rate GI: GI Palp: Yes Soft to palpation and No Guarding due to palpation present (GI) Auscultation: normal bowel sounds Other: G-tube in position Skin: General skin exam: normal color Neuro: Speech: normal speech Motor exam (neuro): 5/5 motor strength present throughout Extrem: General: normal to inspection Psych: Mental Status: mental status grossly normal Objective Data Vital Signs Vital Signs: Vital Signs - 24 hr 08/17/23 14:25 08/17/23 15:25 08/17/23 20:27 Temperature 97.7 F 97.6 F Pulse Rate 103 H 105 H 115 H Respiratory Rate 22 H 22 H Blood Pressure 125/54 L 112/54 L Pulse Oximetry 100 98 Oxygen Delivery 08/17/23 20:00 08/17/23 20:00 08/18/23 00:45 Temperature 97.8 F 98.3 F Pulse Rate 115 H 101 H Respiratory Rate 20 18 Blood Pressure 134/66 105/49 L Pulse Oximetry 98 98 97 Oxygen Delivery Room Air 08/18/23 04:50 08/18/23 07:57 08/18/23 08:00 Temperature 99.7 F H 97.1 F L Pulse Rate 97 96 98 Respiratory Rate 20 16 Blood Pressure 127/47 L 120/59 L Pulse Oximetry 98 98 Oxygen Delivery 08/18/23 08:00 08/18/23 08:38 08/18/23 08:57 Temperature 97.7 F Pulse Rate Respiratory Rate Blood Pressure Pulse Oximetry 98 Oxygen Delivery Room Air Room Air 08/18/23 12:00 Temperature 97.6 F Pulse Rate 89 Respiratory Rate 14 Blood Pressure 105/59 L Pulse Oximetry 97 Oxygen Delivery Intake/Output Intake/Output: Intake & Output 08/15/23 08/16/23 08/17/23 08/18/23 23:59 23:59 23:59 23:59 Intake Total 1000 1075 1450 Output Total 450 Balance 1000 1075 1000 Meds/Results Medications: Active Medications Generic Name Dose Route Start Last Admin Trade Name Freq PRN Reason Stop Dose Admin Acetaminophen 650 mg 08/18/23 07:25 08/18/23 07:57 Acetaminophen 325 Mg Tablet FEED TUBE 650 mg Q6H PRN Administration Mild Pain (1-3) or Fever Albuterol 2 puff 08/17/23 05:03 Albuterol Sulfate (*Sp) Aerosol 1 Puff INHALATION Q4H PRN shortness of breath or wheezing Atorvastatin Calcium 40 mg 08/18/23 09:00 08/18/23 07:57 Atorvastatin 40 Mg Tablet
[2023-08-18 17:36] LABS: Glucose Point of Care 154 mg/dl (65-105)
[2023-08-19] VITALS (7 sets, daily range): BP systolic 118–132; BP diastolic 55–61; PULSE 78–87; RESP 16–20; TEMP 36.5–37.1; O2SAT 98–100
--- NOTE | 2023-08-19 04:05 | PC.NURSE ---
Daylight Savings Time For Daylight Savings Time Ending in the Fall - Clocks are moved back. For Daylight Savings Time Beginning in the Spring - Clocks are moved ahead. For [facility], the time of change occurs at 0200 hrs. Time is taken from the sql server architect. This entry on the patient's chart recognizes the change in time reflected during documentation. Example: 2 entries for vital signs may be charted for 0200 hrs.
[2023-08-19 06:14] LABS: Glucose Point of Care 137 mg/dl (65-105)
[2023-08-19 06:17] LABS: Hematocrit 36.5 % (37.0-47.0); Hemoglobin 11.7 g/dL (12.0-15.0); Mean Corpuscular HGB Conc 32.1 g/dl (32-36); Mean Corpuscular Hemoglobin 28.6 pg (26-34); Mean Corpuscular Volume 89.2 fl (80-100); Mean Platelet Volume 9.7 fl (7.4-10.4); Platelet Count Result 250 k/mm3 (150-375); Red Blood Count 4.09 M/mm3 (4.2-5.4); White Blood Count 11.1 K/mm3 (4.5-10.0)
[2023-08-19 06:28] LABS: Alanine Aminotransferase 12 U/L (6-35); Albumin Level 2.8 g/dL (3.5-5.1); Alkaline Phosphatase 61 U/L (38-126); Anion Gap -1 mmol/L (8-16); Aspartate Amino Transferase 20 U/L (14-36); Bilirubin,Total 0.5 mg/dL (0.2-1.3); Blood Urea Nitrogen 9 mg/dL (7-17); Calcium 9.1 mg/dL (8.4-10.2); Carbon Dioxide 33 mmol/L (22-30); Chloride 99 mmol/L (98-107); Estimated CRCL calculation 52 ml/min; Estimated Glomerular Filt Rate > 60; Glucose 136 mg/dL (65-110); Magnesium 1.9 mg/dL (1.6-2.3); Phosphorus 2.4 mg/dL (2.5-4.5); Potassium 3.9 mmol/L (3.4-5.0); Sodium 131 mmol/L (137-145)
--- NOTE | 2023-08-19 08:14 | P.PNIM_ITS ---
Progress Note: A&P Assessment and Plan (1) Dysphagia: Qualifiers: Dysphagia type: unspecified Qualified Code(s): R13.10 - Dysphagia, unspecified Code(s): R13.10 - Dysphagia, unspecified Status: Acute (2) Failure to thrive: Qualifiers: Failure to thrive age range: in adult Qualified Code(s): R62.7 - Adult failure to thrive Status: Acute (3) Squamous cell carcinoma of head and neck: Code(s): C76.0 - Malignant neoplasm of head, face and neck Status: Acute (4) Malnutrition: Qualifiers: Malnutrition type: protein-calorie malnutrition Protein-calorie malnutrition severity: severe Qualified Code(s): E43 - Unspecified severe protein-calorie malnutrition Code(s): E46 - Unspecified protein-calorie malnutrition Status: Acute Plan Dysphagia secondary to carcinoma of the head and neck * May eat and drink as tolerated following a swallow evaluation * GI consulted * Peg tube placed * Consult dietitian * tolerating peg tube * monitor residuals * will need education for discharge he had * Monitor electrolytes * PPI 08/17: * Tube feedings tolerating * CC setting up for discharge to home with HH * mild temp and WBC bump likely reactive * F/U labs in the am * monitor glucose/mag/phos/K+ replenish as needed 08/18: * tolerating tube feedings at 45ml/hr * may also take oral intake as tolerated * scheduled teaching and education for tube feedings and care on Saturday 08/19 hypokalemia. * 3.1 * 40meq * monitor and replenish as needed Hypo magnesium * mag 1.4 * 2 g IVPB Hyperglycemia * secondary to tube feedings * accucheck ACHS * SS insulin Carcinoma of head and neck * Post surgical intervention undergoing radiation treatment * Lack appetite * Oncologist recommended placement of PEG tube due to recent weight loss and inability to swallow without pain Generalized weakness secondary to cancer treatments and loss of appetite * PT OT pending * PEG tube placed * Will need home health with assistance on tube feedings and continue PT OT Severe protein calorie malnutrition * Encourage protein shake with each meal * PEG tube feeding * recommended pureed/thin liquid Code status: Full code per patient DVT prophylaxis: SCD's Stress ulcer prophylaxis: Pepcid PT/OT notes: PT/OT pending Disposition: Peg tube placed, tube feedings started discharge plan is home with CC consulted for assistance. Time Spent With Patient Time with patient: 15 - 25 minutes Subjective Date/time seen: 08/19/23 08:14 Interval history: (Medical Record) Chief Complaint: dysphagia Narrative: This is an 88-year-old female with past medical history significant for head and neck squamous cell carcinoma status post surgery patient undergoing radiation, patient presents to the emergency room due to generalized weakness, poor per orally intake, dysphagia, patient can only take liquids.? Presents to emergency room for possible PEG tube placement. 08/16: Patient is a pleasant older female who states she has not had an appetitate and has difficulting swallowing due to her cancer treatment. Patient has lost over 20 pounds recently and her oncologist recommended placement of peg tube to increase he nutritional intake. Patient agrees at this time to continue with placement of peg tube. 08/17: Patient comfortable and tolerating tube feedings at this time. Mild temp 99.7 this am
--- NOTE | 2023-08-19 08:14 | PM.IMPN ---
Progress Note: A&P Assessment and Plan (1) Dysphagia: Qualifiers: Dysphagia type: unspecified Qualified Code(s): R13.10 - Dysphagia, unspecified Code(s): R13.10 - Dysphagia, unspecified Status: Acute (2) Failure to thrive: Qualifiers: Failure to thrive age range: in adult Qualified Code(s): R62.7 - Adult failure to thrive Status: Acute (3) Squamous cell carcinoma of head and neck: Code(s): C76.0 - Malignant neoplasm of head, face and neck Status: Acute (4) Malnutrition: Qualifiers: Malnutrition type: protein-calorie malnutrition Protein-calorie malnutrition severity: severe Qualified Code(s): E43 - Unspecified severe protein-calorie malnutrition Code(s): E46 - Unspecified protein-calorie malnutrition Status: Acute Plan Dysphagia secondary to carcinoma of the head and neck May eat and drink as tolerated following a swallow evaluation GI consulted Peg tube placed Consult dietitian tolerating peg tube monitor residuals will need education for discharge he had Monitor electrolytes PPI 08/17: Tube feedings tolerating CC setting up for discharge to home with HH mild temp and WBC bump likely reactive F/U labs in the am monitor glucose/mag/phos/K+ replenish as needed 08/18: tolerating tube feedings at 45ml/hr may also take oral intake as tolerated scheduled teaching and education for tube feedings and care on Saturday 08/19 hypokalemia. 3.1 40meq monitor and replenish as needed Hypo magnesium mag 1.4 2 g IVPB Hyperglycemia secondary to tube feedings accucheck ACHS SS insulin Carcinoma of head and neck Post surgical intervention undergoing radiation treatment Lack appetite Oncologist recommended placement of PEG tube due to recent weight loss and inability to swallow without pain Generalized weakness secondary to cancer treatments and loss of appetite PT OT pending PEG tube placed Will need home health with assistance on tube feedings and continue PT OT Severe protein calorie malnutrition Encourage protein shake with each meal PEG tube feeding recommended pureed/thin liquid Code status: Full code per patient DVT prophylaxis: SCD's Stress ulcer prophylaxis: Pepcid PT/OT notes: PT/OT pending Disposition: Peg tube placed, tube feedings started discharge plan is home with CC consulted for assistance. Time Spent With Patient Time with patient: 15 - 25 minutes Subjective Date/time seen: 08/19/23 08:14 Interval history: (Medical Record) Chief Complaint: dysphagia Narrative: This is an 88-year-old female with past medical history significant for head and neck squamous cell carcinoma status post surgery patient undergoing radiation, patient presents to the emergency room due to generalized weakness, poor per orally intake, dysphagia, patient can only take liquids.? Presents to emergency room for possible PEG tube placement. 08/16: Patient is a pleasant older female who states she has not had an appetitate and has difficulting swallowing due to her cancer treatment. Patient has lost over 20 pounds recently and her oncologist recommended placement of peg tube to increase he nutritional intake. Patient agrees at this time to continue with placement of peg tube. 08/17: Patient comfortable and tolerating tube feedings at this time. Mild temp 99.7 this am and WBC 12 likely reactive to tube placement follow-up labs in the am will continue with tube feedings. Plan is for patient to return home with . 08/18: Patient tolerating tube feedings now at 45mL/hr. May also have oral intake as tolerated following swallow evaluation. Teaching for family and patient schedule Saturday 08/19. Review of Systems Review of Systems: All systems reviewed & are unremarkable except as noted in HPI and below Exam Narrative: Physical Exam: GENERAL: Alert and oriented x 3.
[2023-08-19] MEDS: carvediloL 3.125 MG TABLET FEED TUBE ×2 (08:40→21:40)
[2023-08-19] MEDS: ATORVASTATIN 40 MG TABLET FEED TUBE (08:40)
[2023-08-19] MEDS: FAMOTIDINE 20 MG TABLET FEED TUBE ×2 (08:40→17:43)
--- NOTE | 2023-08-19 12:06 | PCSTNOTE ---
Bedside swallowing evaluation completed. Patient seen bedside positioned upright in bed with head of bed elevated. Oral peripheral examination results within functional limits with mildly reduced overall strength and mild right sided labial weakness. G-tube in place. Patient states her mouth is very dry and everything tastes bad which is not uncommon for patient's undergoing radiation therapy for head and neck cancer, as she is. Refused ice chips. Took sips of water by spoon and from cup, but required encouragement. Trialed applesauce by spoon (self fed) and showed no signs of aspiration. Please note that silent aspiration cannot be ruled out at bedside and can be evaluated by a modified barium swallow study. Recommendations: pureed diet and thin liquids as patient desires. No further speech therapy is recommended. Swallowing precaution recommendations placed in chart. Physician and nurse consulted. Thank you for the referral of this patient.
[2023-08-19 12:14] LABS: Glucose Point of Care 139 mg/dl (65-105)
--- NOTE | 2023-08-19 14:15 | WPDGIPROGNO ---
Progress Note: A&P Assessment and Plan (1) Dysphagia: Qualifiers: Dysphagia type: unspecified Qualified Code(s): R13.10 - Dysphagia, unspecified Code(s): R13.10 - Dysphagia, unspecified Status: Acute Assessment and Plan: g-tube placement, tolerating tube feeding family will meet tomorrow with home health coordinator and learn about feeding will follow as needed (2) Malnutrition: Qualifiers: Malnutrition type: protein-calorie malnutrition Protein-calorie malnutrition severity: severe Qualified Code(s): E43 - Unspecified severe protein-calorie malnutrition Code(s): E46 - Unspecified protein-calorie malnutrition Status: Acute (3) Failure to thrive: Qualifiers: Failure to thrive age range: in adult Qualified Code(s): R62.7 - Adult failure to thrive Status: Acute (4) Squamous cell carcinoma of head and neck: Code(s): C76.0 - Malignant neoplasm of head, face and neck Status: Acute Assessment and Plan: will follow with oncology for more radiation (5) Debility: Code(s): R53.81 - Other malaise Status: Acute (6) Dehydration: Code(s): E86.0 - Dehydration Status: Inactive Assessment and Plan: treated, now she is getting nutritional support Subjective Date/time seen: 08/19/23 14:15 Interval history: tolerating tube feeding by g tube also she is drinking family members at bedside Review of Systems Review of Systems: All systems reviewed & are unremarkable except as noted in HPI and below Exam Const: General: comfortable and no acute distress HENMT: Face/Nose/Sinus: Normal nares present Eyes: Sclera: sclerae normal Neck: Other: surgical scar left neck Resp: Auscultation: clear to auscultation bilaterally Cardio: Rate: regular rate GI: GI Palp: Yes Soft to palpation and No Guarding due to palpation present (GI) Auscultation: normal bowel sounds Other: G-tube in position Skin: General skin exam: normal color Neuro: Speech: normal speech Motor exam (neuro): 5/5 motor strength present throughout Extrem: General: normal to inspection Psych: Mental Status: mental status grossly normal Objective Data Vital Signs Vital Signs: Vital Signs - 24 hr 08/18/23 14:57 08/18/23 16:00 08/18/23 21:30 Temperature 97.6 F Pulse Rate 86 92 Respiratory Rate 14 Blood Pressure 94/55 L Pulse Oximetry 98 Oxygen Delivery Room Air 08/18/23 21:06 08/18/23 20:00 08/19/23 04:31 Temperature 98 F 98.8 F Pulse Rate 921 H 87 Respiratory Rate 6 L 16 Blood Pressure 138/71 125/60 Pulse Oximetry 100 100 Oxygen Delivery Room Air 08/19/23 08:36 08/19/23 08:36 08/19/23 08:40 Temperature Pulse Rate 87 87 Respiratory Rate 16 Blood Pressure 132/60 Pulse Oximetry 98 Oxygen Delivery Room Air 08/19/23 11:47 Temperature 98.7 F Pulse Rate 84 Respiratory Rate 20 Blood Pressure 118/56 L Pulse Oximetry 99 Oxygen Delivery Intake/Output Intake/Output: Intake & Output 08/16/23 08/17/23 08/18/23 08/20/23 23:59 23:59 23:59 00:59 Intake Total 1000 1075 2690 Output Total 450 Balance 1000 1075 2240 Meds/Results Medications: Active Medications Generic Name Dose Route Start Last Admin Trade Name Freq PRN Reason Stop Dose Admin Acetaminophen 650 mg 08/18/23 07:25 08/18/23 07:57 Acetaminophen 325 Mg Tablet FEED TUBE 650 mg Q6H PRN Administration Mild Pain (1-3) or Fever Albuterol 2 puff 08/17/23 05:03 Albuterol Sulfate (*Sp) Aerosol 1 Puff INHALATION Q4H PRN shortness of breath or wheezing Atorvastatin Calcium 40 mg 08/18/23 09:00 08/19/23 08:40 Atorvastatin 40 Mg Tablet FEED TUBE 40 mg DAILY BRUNO Administration Carvedilol 3.125 mg 08/17/23 21:00 08/19/23 08:40 Carvedilol 3.125 Mg Tablet FEED TUBE 3.125 mg Q12HR BRUNO Administration Dextrose 12.5 gm 08/17/23 07:53 De
[2023-08-19 18:44] LABS: Glucose Point of Care 158 mg/dl (65-105)
[2023-08-20 00:10] VITALS: BP 115/58; PULSE 73; RESP 20; TEMP 36.2; O2SAT 99
[2023-08-20 00:14] LABS: Glucose Point of Care 130 mg/dl (65-105)
[2023-08-20 04:45] VITALS: BP 168/78; PULSE 76; RESP 18; TEMP 36.6; O2SAT 99
[2023-08-20 06:09] LABS: Glucose Point of Care 142 mg/dl (65-105)
[2023-08-20 06:13] LABS: Hemoglobin 11.4 g/dL (12.0-15.0); Mean Corpuscular HGB Conc 31.7 g/dl (32-36); Mean Corpuscular Hemoglobin 28.4 pg (26-34); Mean Corpuscular Volume 89.8 fl (80-100); Mean Platelet Volume 9.9 fl (7.4-10.4); Platelet Count Result 242 k/mm3 (150-375); Red Blood Count 4.01 M/mm3 (4.2-5.4); Red Cell Distribution Width 12.1 % (11.5-14.5); White Blood Count 9.7 K/mm3 (4.5-10.0)
[2023-08-20 06:38] LABS: Alanine Aminotransferase 14 U/L (6-35); Alkaline Phosphatase 63 U/L (38-126); Anion Gap 0 mmol/L (8-16); Aspartate Amino Transferase 25 U/L (14-36); Bilirubin,Total 0.4 mg/dL (0.2-1.3); Blood Urea Nitrogen 11 mg/dL (7-17); Calcium 9.1 mg/dL (8.4-10.2); Carbon Dioxide 35 mmol/L (22-30); Chloride 95 mmol/L (98-107); Estimated CRCL calculation 52 ml/min; Estimated Glomerular Filt Rate > 60; Glucose 128 mg/dL (65-110); Phosphorus 3.3 mg/dL (2.5-4.5); Potassium 4.2 mmol/L (3.4-5.0); Sodium 130 mmol/L (137-145)
[2023-08-20 08:00] VITALS: BP 127/57; PULSE 77; RESP 16; TEMP 36.1; O2SAT 100
[2023-08-20 09:10] VITALS: PULSE 81
[2023-08-20] MEDS: carvediloL 3.125 MG TABLET FEED TUBE (09:10)
[2023-08-20] MEDS: ATORVASTATIN 40 MG TABLET FEED TUBE (09:10)
[2023-08-20] MEDS: FAMOTIDINE 20 MG TABLET FEED TUBE (09:10)
--- NOTE | 2023-08-20 10:08 | PCPTNOTE ---
Attempted to see patient for PT, however patient refused stating she participated in therapy earilier this morning and would like to rest. Patient asked for PT to return later today.
[2023-08-20] MEDS: KETOROLAC 30 MG/ML VIAL (*BKC) IV PUSH (10:22)
--- NOTE | 2023-08-20 12:51 | P.DS_ITS ---
DS: Admitting Diagnosis Discharge Date 01/20/2024 Admitting Diagnosis Dysphagia DS: Discharge Diagnosis Discharge Diagnosis (1) Dysphagia: Qualifiers: Dysphagia type: unspecified Qualified Code(s): R13.10 - Dysphagia, unspecified Code(s): R13.10 - Dysphagia, unspecified Status: Acute (2) Failure to thrive: Qualifiers: Failure to thrive age range: in adult Qualified Code(s): R62.7 - Adult failure to thrive Status: Acute (3) Squamous cell carcinoma of head and neck: Code(s): C76.0 - Malignant neoplasm of head, face and neck Status: Acute (4) Malnutrition: Qualifiers: Malnutrition type: protein-calorie malnutrition Protein-calorie malnutrition severity: severe Qualified Code(s): E43 - Unspecified severe protein-calorie malnutrition Code(s): E46 - Unspecified protein-calorie malnutrition Status: Acute Plan Dysphagia secondary to carcinoma of the head and neck * May eat and drink as tolerated following a swallow evaluation * GI consulted * Peg tube placed * Consult dietitian * tolerating peg tube * monitor residuals * will need education for discharge he had * Monitor electrolytes * PPI 08/17: * Tube feedings tolerating * CC setting up for discharge to home with HH * mild temp and WBC bump likely reactive * F/U labs in the am * monitor glucose/mag/phos/K+ replenish as needed 08/18: * tolerating tube feedings at 45ml/hr * may also take oral intake as tolerated * scheduled teaching and education for tube feedings and care on Saturday 08/19 hypokalemia. * 3.1 * 40meq * monitor and replenish as needed Hypo magnesium * mag 1.4 * 2 g IVPB Hyperglycemia * secondary to tube feedings * accucheck ACHS * SS insulin Carcinoma of head and neck * Post surgical intervention undergoing radiation treatment * Lack appetite * Oncologist recommended placement of PEG tube due to recent weight loss and inability to swallow without pain Generalized weakness secondary to cancer treatments and loss of appetite * PT OT pending * PEG tube placed * Will need home health with assistance on tube feedings and continue PT OT Severe protein calorie malnutrition * Encourage protein shake with each meal * PEG tube feeding * recommended pureed/thin liquid Disposition: Peg tube placed, tube feedings started discharged home with HH DS: Summary Hospital Course Reason for hospitalization: Dysphagia Hospital Course: (Medical Record) Chief Complaint: dysphagia Narrative: This is an 88-year-old female with past medical history significant for head and neck squamous cell carcinoma status post surgery patient undergoing radiation, patient presents to the emergency room due to generalized weakness, poor per orally intake, dysphagia, patient can only take liquids.? Presents to emergency room for possible PEG tube placement. 08/16: Patient is a pleasant older female who states she has not had an appetitate and has difficulting swallowing due to her cancer treatment.? Patient has lost over 20 pounds recently and her oncologist recommended placement of peg tube to increase he nutritional intake. Patient agrees at this time to continue with placement of peg tube. 08/17: Patient comfortable and tolerating tube feedings at this time.? Mild temp 99.7 this am and WBC 12 likely reactive to tube placement follow-up labs in the am will continue with tube feedings.? Plan is for patient to return
--- NOTE | 2023-08-20 12:51 | PM.DS ---
DS: Admitting Diagnosis Discharge Date 01/20/2024 Admitting Diagnosis Dysphagia DS: Discharge Diagnosis Discharge Diagnosis (1) Dysphagia: Qualifiers: Dysphagia type: unspecified Qualified Code(s): R13.10 - Dysphagia, unspecified Code(s): R13.10 - Dysphagia, unspecified Status: Acute (2) Failure to thrive: Qualifiers: Failure to thrive age range: in adult Qualified Code(s): R62.7 - Adult failure to thrive Status: Acute (3) Squamous cell carcinoma of head and neck: Code(s): C76.0 - Malignant neoplasm of head, face and neck Status: Acute (4) Malnutrition: Qualifiers: Malnutrition type: protein-calorie malnutrition Protein-calorie malnutrition severity: severe Qualified Code(s): E43 - Unspecified severe protein-calorie malnutrition Code(s): E46 - Unspecified protein-calorie malnutrition Status: Acute Plan Dysphagia secondary to carcinoma of the head and neck May eat and drink as tolerated following a swallow evaluation GI consulted Peg tube placed Consult dietitian tolerating peg tube monitor residuals will need education for discharge he had Monitor electrolytes PPI 08/17: Tube feedings tolerating CC setting up for discharge to home with HH mild temp and WBC bump likely reactive F/U labs in the am monitor glucose/mag/phos/K+ replenish as needed 08/18: tolerating tube feedings at 45ml/hr may also take oral intake as tolerated scheduled teaching and education for tube feedings and care on Saturday 08/19 hypokalemia. 3.1 40meq monitor and replenish as needed Hypo magnesium mag 1.4 2 g IVPB Hyperglycemia secondary to tube feedings accucheck ACHS SS insulin Carcinoma of head and neck Post surgical intervention undergoing radiation treatment Lack appetite Oncologist recommended placement of PEG tube due to recent weight loss and inability to swallow without pain Generalized weakness secondary to cancer treatments and loss of appetite PT OT pending PEG tube placed Will need home health with assistance on tube feedings and continue PT OT Severe protein calorie malnutrition Encourage protein shake with each meal PEG tube feeding recommended pureed/thin liquid Disposition: Peg tube placed, tube feedings started discharged home with HH DS: Summary Hospital Course Reason for hospitalization: Dysphagia Hospital Course: (Medical Record) Chief Complaint: dysphagia Narrative: This is an 88-year-old female with past medical history significant for head and neck squamous cell carcinoma status post surgery patient undergoing radiation, patient presents to the emergency room due to generalized weakness, poor per orally intake, dysphagia, patient can only take liquids.? Presents to emergency room for possible PEG tube placement. 08/16: Patient is a pleasant older female who states she has not had an appetitate and has difficulting swallowing due to her cancer treatment.? Patient has lost over 20 pounds recently and her oncologist recommended placement of peg tube to increase he nutritional intake. Patient agrees at this time to continue with placement of peg tube. 08/17: Patient comfortable and tolerating tube feedings at this time.? Mild temp 99.7 this am and WBC 12 likely reactive to tube placement follow-up labs in the am will continue with tube feedings.? Plan is for patient to return home with HH. 08/18: Patient tolerating tube feedings now at 45mL/hr.? May also have oral intake as tolerated following swallow evaluation.? Teaching for family and patient schedule Saturday 08/19.? 08/19: DISCHARGED Patient tolerating tube feedings has mild headache, still reports pain with swallow likely secondary to her radiation treatment. Patient and family recieved bedside tube feed training and patient was discharged back to home with HH scheduled for 08/21. Patient has scheduled oncology appointm
== END 2023-08-20 16:02 | disposition home health service (06) ==
LOC: ANHED 20:54 → ANH3MEDSUR 08-17 04:32
PROVIDERS: Internal Medicine Gastroenterology; Nurse Practitioner Family; Admitting Provider Internal Medicine; Emergency Provider Physician Assistant; PCP Nurse Practitioner; Visit Provider Internal Medicine
PROC: 0DH63UZ Insertion of Feeding Device into Stomach, Percutaneous Approach (ICD-10-PCS; CPT 43246; principal; 2023-08-17 16:00)
DX: R13.10 Dysphagia, unspecified (principal); C76.0 Malignant neoplasm of head, face and neck; C79.9 Secondary malignant neoplasm of unspecified site; R62.7 Adult failure to thrive; E46 Unspecified protein-calorie malnutrition; R53.81 Other malaise; E86.0 Dehydration; E43 Unspecified severe protein-calorie malnutrition; J44.9 Chronic obstructive pulmonary disease, unspecified; K21.9 Gastro-esophageal reflux disease without esophagitis; R63.4 Abnormal weight loss; Z68.1 Body mass index [BMI] 19.9 or less, adult; F17.210 Nicotine dependence, cigarettes, uncomplicated; Z79.51 Long term (current) use of inhaled steroids; Z79.891 Long term (current) use of opiate analgesic; Z86.79 Personal history of other diseases of the circulatory system; Z95.5 Presence of coronary angioplasty implant and graft; Z80.1 Family history of malignant neoplasm of trachea, bronchus and lung; Z80.0 Family history of malignant neoplasm of digestive organs; Z82.49 Family history of ischemic heart disease and other diseases of the circulatory system
CPT/HCPCS: 36415; 43246; 77386; 80053; 81001; 82948; 83735; 84100; 85025; 85027; 87637; 92610; 93005; 96361; 96374; 97110; 97116; 97161; 97165; 97530; 97535; 99285; A9270; G0378; J0360; J0690; J1885; J2270; J2704; J7030; J7120; J7121

== ENCOUNTER 2023-09-04 13:41 | Outpatient (CLI) | payer MEDICARE, SELFPAY ==
[2023-09-04 13:56] LABS: Basophils Percent Auto 0.4 % (0.2-1.2); Eosinophils Percent Auto 0.6 % (0-4.4); Hematocrit 35.2 % (37.0-47.0); Hemoglobin 11.4 g/dL (12.0-15.0); Immature Granulocyte Absolute 0.03 K/mm3 (0.00-0.031); Immature Granulocyte Percent A 0.4 % (0-0.5); Lymphocytes Percent Auto 7.4 % (18.3-44.2); Mean Corpuscular HGB Conc 32.4 g/dl (32-36); Mean Corpuscular Hemoglobin 29.1 pg (26-34); Mean Corpuscular Volume 89.8 fl (80-100); Mean Platelet Volume 9.1 fl (7.4-10.4); Monocytes Absolute Auto 0.6 K/mm3 (0.1-0.6); Neutrophils Absolute Auto 5.6 K/mm3 (1.3-6.7); Neutrophils Percent Auto 82.2 % (45.5-73.1); Platelet Count Result 276 k/mm3 (150-375); Red Blood Count 3.92 M/mm3 (4.2-5.4); Red Cell Distribution Width 12.9 % (11.5-14.5); White Blood Count 6.8 K/mm3 (4.5-10.0)
[2023-09-04 14:00] LABS: Blood Urea Nitrogen 16 mg/dL (8-26); Carbon Dioxide 28 mmol/L (22-30); Chloride 97 mmol/L (98-109); Estimated Glomerular Filt Rate > 60; Glucose 108 mg/dL (70-105); Ionized Calcium (POC) 1.26 mmol/L (1.11-1.31); Potassium 4.5 mmol/L (3.5-4.9); Sodium 133 mmol/L (138-146)
[2023-09-04 17:03] LABS: Alanine Aminotransferase 20 U/L (6-35); Albumin Level 3.8 g/dL (3.5-5.1); Alkaline Phosphatase 77 U/L (38-126); Anion Gap 5 mmol/L (4-12); Aspartate Amino Transferase 35 U/L (14-36); Bilirubin,Total 0.8 mg/dL (0.2-1.3); Blood Urea Nitrogen 17 mg/dL (7-17); Calcium 9.7 mg/dL (8.4-10.2); Carbon Dioxide 27 mmol/L (22-30); Chloride 98 mmol/L (98-107); Estimated Glomerular Filt Rate > 60; Glucose 107 mg/dL (65-110); Potassium 4.5 mmol/L (3.4-5.0); Sodium 130 mmol/L (137-145)
== END 2023-09-04 13:42 | disposition home or self-care (01) ==
LOC: ANHLAB 13:43
PROVIDERS: PCP Nurse Practitioner; Visit Provider Internal Medicine Hematology & Oncology
DX: C76.0 Malignant neoplasm of head, face and neck (principal)
CPT/HCPCS: 36415; 80047; 80053; 85025

== ENCOUNTER 2023-09-10 17:48 | Emergency (ER) | payer MEDICARE, SELFPAY ==
--- NOTE | ~2023-09-10 | XR_ITS ---
EXAM: XR shoulder RT min 2V DATE: 09/10/2023 18:17 HISTORY: pain, FELL DOWN STAIRS LAST NIGHT . COMPARISON: None available. FINDINGS: Left lower neck and left axillary surgical clips. Decreased mineralization. Mildly comminu chase, minimally displaced fracture of the left humeral head, likely involving portions of the greater tuberosity. No lytic or blastic lesion. Joint spaces are maintained. No erosion or periosteal change. Soft tissues within normal limits. IMPRESSION: Mildly comminuted, minimally displaced fracture of the left humeral head. Reviewed, dictated and finalized at location K.
[2023-09-10 17:54] VITALS: BP 104/52; PULSE 109; RESP 20; TEMP 36.6; O2SAT 94
[2023-09-10 20:26] VITALS: BP 127/68; PULSE 84; RESP 13; O2SAT 96
--- NOTE | 2023-09-10 20:37 | ED.EXTPRO ---
HPI - Extremity Problem General Chief complaint: Extremity Problem,Nontraumatic Stated complaint: fall Time Seen by Provider: 09/10/23 20:00 Source: patient Mode of arrival: ambulatory Limitations: no limitations History of Present Illness HPI Narrative: This is an 88-year-old female who presents to the ED with chief complaint of left shoulder injury that occurred last night. Reports decreased range of motion and pain to the left shoulder. States that she was walking down her but only stairs when she accidentally missed a step. Reports that she fell down around 5-6 steps. Reports injury to the left shoulder only. Denies numbness, weakness. Denies any further sites of pain or injury. 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 History of PTCA 2 PAD (peripheral artery disease) Surgical History Surgical History History of cataract removal with insertion of prosthetic lens History of coronary artery stent placement Family History Family History Sibling Hypertension Family history of throat cancer Father Family history of diabetes mellitus in first degree relative Patient's father is Family history of heart disease in male family member before age 55 Family history of cardiovascular disease Mother Family history of pancreatic cancer Social History Social History Smoking packs per day: 1 Smoking cigarettes per day: 20.0 Years smoked: 65 Smoking pack-years: 65.00 Smoking status: Current every day smoker Second hand tobacco smoke exposure: No Additional smoking assessment comments: smoking about 1/2 pack now Alcohol intake: never Substance use: never Do You Feel Safe in your Home?: Yes Lack of Transportation: No Lack of Food: Never True Current Housing: I Have Housing Concerned About Future Housing: No Difficulty Paying Gas/Electric Bills: No Difficulty Paying for Meds: No Currently Unemployed: No Education: High School Diploma/GED Difficulty w/ Childcare or Family Care: No Spiritual care concerns: No Exam Narrative: GENERAL: Well-appearing, well-nourished, and in no acute distress. HEAD: Normocephalic, atraumatic. EYES: PERRLA and EOMI. ENT: Nares clear, no rhinorrhea or epistaxis. Mucous membranes moist. Oropharynx without tonsillar hypertrophy exudate or other lesions. NECK: Supple. No adenopathy or masses. CHEST: No respiratory distress. Clear to auscultation. No wheezes rales or rhonchi HEART: Regular rate and rhythm. No murmur heard. Normal peripheral pulses. ABDOMEN: Soft, nontender, nondistended, normal active bowel sounds. MSK: Mild bruising to the left shoulder proximally. Moderate proximal shoulder tenderness on the left. No deformity. Limited range of motion due to pain. Soft compartments. Neurovascularly intact distally. MSK exam is otherwise fully intact. SKIN: Warm, dry, no rash. NEURO: Alert and oriented x3. No focal deficits. PSYCH: Normal mood and affect. Course Vital Signs Vital signs: Vital Signs Temperature 97.8 F 09/10/23 17:54 Pulse Rate 109 H 09/10/23 17:54 Respiratory Rate 20 09/10/23 17:54 Blood Pressure 104/52 L 09/10/23 17:54
[2023-09-10 21:40] VITALS: BP 108/69; PULSE 93; RESP 18; O2SAT 100
[2023-09-10] MEDS: HYDROcodone/acetaminophen (*CRX) 5-325 MG TABLET 1 TAB PO (21:40)
== END 2023-09-10 22:19 | disposition home or self-care (01) ==
PROVIDERS: Emergency Provider Physician Assistant; PCP Nurse Practitioner
DX: S42.202A Unspecified fracture of upper end of left humerus, initial encounter for closed fracture (principal); I25.10 Atherosclerotic heart disease of native coronary artery without angina pectoris; W10.9XXA Fall (on) (from) unspecified stairs and steps, initial encounter
CPT/HCPCS: 73030; 99284; A4565; A9270

== ENCOUNTER 2023-12-19 10:35 | Outpatient (CLI) | payer MEDICARE, SELFPAY ==
--- NOTE | ~2023-12-19 | CT_ITS ---
EXAMINATION: CT soft tissue neck w con DATE: 12/19/2023 11:44 INDICATION: Malignant neoplasm of head, face and neck. TECHNIQUE: Computed tomography (CT) of the neck was performed with 75 mL Omnipaque-350 intravenous co ntrast. Automated exposure control and iterative reconstruction technique were employed. The dose-linden gth product was 209.89 mGy-cm. COMPARISON: PET/CT 04/12/2023 FINDINGS: There is mild emphysema. There is mild scarring at the lung apices. There are nodules in th e thyroid measuring up to 9 mm, likely not clinically significant. There is left-sided mid and high i nternal jugular chain lymphadenopathy. For example, a left high internal jugular chain hector mass maldonado sures 2.5 x 1.6 cm. There are surgical clips in left neck. 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 There is mild cervical spondylosis. IMPRESSION: 1. Left high and mid internal jugular chain lymphadenopathy with improvement from 04/12/2023, consiste nt with metastatic disease. Reviewed, dictated and finalized at location E. IMPRESSION: 1. Left high and mid internal jugular chain lymphadenopathy with improvement fr om 04/12/2023, consistent with metastatic disease.
[2023-12-19 11:40] LABS: Estimated Glomerular Filt Rate > 60
== END 2023-12-19 10:36 | disposition home or self-care (01) ==
LOC: ANHIMG 10:41
PROVIDERS: PCP Nurse Practitioner; Visit Provider Internal Medicine Hematology & Oncology
DX: C76.0 Malignant neoplasm of head, face and neck (principal)
CPT/HCPCS: 70491; Q9967

== ENCOUNTER 2024-01-09 12:49 | Outpatient (CLI) | payer MEDICARE, SELFPAY ==
[2024-01-09 13:09] LABS: Basophils Percent Auto 0.5 % (0.2-1.2); Eosinophils Absolute Auto 0.1 K/mm3 (0-0.3); Eosinophils Percent Auto 1.2 % (0-4.4); Hematocrit 37.4 % (37.0-47.0); Hemoglobin 12.3 g/dL (12.0-15.0); Immature Granulocyte Absolute 0.01 K/mm3 (0.00-0.031); Immature Granulocyte Percent A 0.2 % (0-0.5); Lymphocytes Absolute Auto 0.55 K/mm3 (0.9-3.2); Lymphocytes Percent Auto 12.7 % (18.3-44.2); Mean Corpuscular HGB Conc 32.9 g/dl (32-36); Mean Corpuscular Volume 85.2 fl (80-100); Mean Platelet Volume 9.7 fl (7.4-10.4); Monocytes Absolute Auto 0.4 K/mm3 (0.1-0.6); Monocytes Percent Auto 9.2 % (2.6-8.5); Neutrophils Absolute Auto 3.3 K/mm3 (1.3-6.7); Neutrophils Percent Auto 76.2 % (45.5-73.1); Platelet Count Result 210 k/mm3 (150-375); Red Blood Count 4.39 M/mm3 (4.2-5.4); Red Cell Distribution Width 14.7 % (11.5-14.5); White Blood Count 4.3 K/mm3 (4.5-10.0)
[2024-01-09 13:12] LABS: Blood Urea Nitrogen 13 mg/dL (8-26); Carbon Dioxide 27 mmol/L (22-30); Chloride 99 mmol/L (98-109); Estimated Glomerular Filt Rate > 60; Glucose 97 mg/dL (70-105); Ionized Calcium (POC) 1.24 mmol/L (1.11-1.31); Potassium 4.3 mmol/L (3.5-4.9); Sodium 133 mmol/L (138-146)
[2024-01-09 16:49] LABS: Alanine Aminotransferase 13 U/L (6-35); Alkaline Phosphatase 71 U/L (38-126); Anion Gap 9 mmol/L (4-12); Aspartate Amino Transferase 23 U/L (14-36); Bilirubin,Total 0.9 mg/dL (0.2-1.3); Blood Urea Nitrogen 13 mg/dL (7-17); Calcium 9.8 mg/dL (8.4-10.2); Carbon Dioxide 26 mmol/L (22-30); Chloride 97 mmol/L (98-107); Estimated Glomerular Filt Rate > 60; Glucose 97 mg/dL (65-110); Potassium 4.4 mmol/L (3.4-5.0); Sodium 132 mmol/L (137-145)
== END 2024-01-09 12:50 | disposition home or self-care (01) ==
PROVIDERS: PCP Nurse Practitioner; Visit Provider Internal Medicine Hematology & Oncology
DX: C76.0 Malignant neoplasm of head, face and neck (principal)
CPT/HCPCS: 36415; 80047; 80053; 85025

== ENCOUNTER 2024-04-01 10:47 | Outpatient (CLI) | payer MEDICARE, SELFPAY ==
--- NOTE | ~2024-04-01 | CT_ITS ---
EXAMINATION: CT soft tissue neck w con DATE: 04/01/2024 11:34 INDICATION: Head and neck cancer. TECHNIQUE: Computed tomography (CT) of the neck was performed with 75 mL Omnipaque-350 intravenous co ntrast. Automated exposure control and iterative reconstruction technique were employed. The dose-linden gth product was 240.43 mGy-cm. COMPARISON: Neck CT 12/19/2023, PET/CT 04/12/2023 FINDINGS: There is mild scarring at the lung apices. There is mild emphysema. There are likely change s of ocular lens replacement surgeries. There are nodules in the thyroid measuring up to 8 mm, likely not clinically significant. There is asymmetric fat in the left half of the tongue. There is mucosal thickening in the nasopharynx and oropharynx on the left. There is confluent left high and mid inter nal jugular chain lymphadenopathy with irregular margins measuring up to 2.7 x 1.9 cm. There is total occlusion of left internal jugular vein. There is plaque in the proximal internal carotid arteries m easuring >70% stenosis on both sides. There is moderate cervical spondylosis. There are bridging endp late osteophytes at multiple levels in the thoracic spine, consistent with diffuse idiopathic skeleta l hyperostosis (DISH). IMPRESSION: 1. Stable left high and mid internal jugular chain lymphadenopathy, consistent with metastatic diseas e. 2. Bilateral carotid stenosis. Reviewed, dictated and finalized at location A. IMPRESSION: 1. Stable left high and mid internal jugular chain lymphadenopathy, consistent with metastatic disease. 2. Bilateral carotid stenosis.
[2024-04-01 11:29] LABS: Estimated Glomerular Filt Rate > 60
[2024-04-01 12:15] LABS: Basophils Percent Auto 0.3 % (0.2-1.2); Eosinophils Percent Auto 0.3 % (0-4.4); Hematocrit 37.3 % (37.0-47.0); Hemoglobin 12.2 g/dL (12.0-15.0); Immature Granulocyte Absolute 0.02 K/mm3 (0.00-0.031); Immature Granulocyte Percent A 0.3 % (0-0.5); Lymphocytes Absolute Auto 0.34 K/mm3 (0.9-3.2); Lymphocytes Percent Auto 5.6 % (18.3-44.2); Mean Corpuscular HGB Conc 32.7 g/dl (32-36); Mean Corpuscular Hemoglobin 29.4 pg (26-34); Mean Corpuscular Volume 89.9 fl (80-100); Monocytes Absolute Auto 0.5 K/mm3 (0.1-0.6); Monocytes Percent Auto 7.9 % (2.6-8.5); Neutrophils Absolute Auto 5.2 K/mm3 (1.3-6.7); Neutrophils Percent Auto 85.6 % (45.5-73.1); Platelet Count Result 239 k/mm3 (150-375); Red Blood Count 4.15 M/mm3 (4.2-5.4); Red Cell Distribution Width 11.9 % (11.5-14.5); White Blood Count 6.1 K/mm3 (4.5-10.0)
[2024-04-01 12:40] LABS: Alanine Aminotransferase 14 U/L (6-35); Albumin Level 3.9 g/dL (3.5-5.1); Alkaline Phosphatase 110 U/L (38-126); Anion Gap 6 mmol/L (4-12); Aspartate Amino Transferase 24 U/L (14-36); Bilirubin,Total 0.8 mg/dL (0.2-1.3); Blood Urea Nitrogen 15 mg/dL (7-17); Calcium 9.4 mg/dL (8.4-10.2); Carbon Dioxide 31 mmol/L (22-30); Chloride 92 mmol/L (98-107); Estimated Glomerular Filt Rate > 60; Glucose 102 mg/dL (65-110); Potassium 4.1 mmol/L (3.4-5.0); Sodium 129 mmol/L (137-145)
== END 2024-04-01 10:48 | disposition home or self-care (01) ==
PROVIDERS: PCP Nurse Practitioner Family; Visit Provider Internal Medicine Hematology & Oncology
DX: C76.0 Malignant neoplasm of head, face and neck (principal); R59.0 Localized enlarged lymph nodes; I65.23 Occlusion and stenosis of bilateral carotid arteries
CPT/HCPCS: 36415; 70491; 80053; 85025; Q9967